=== PATIENT | male | born 1940 | race Caucasian/White ===

== ENCOUNTER → 2016-06-10 | Outpatient (CLI) | payer OTHER ==
[~2016-06-10] MED LIST: AMLO-114 PO; ENOX40IN SQ; ESCI1TAB10 PO; FENO134C PO; FENO1TAB PO; FEXO1TAB49 PO; FLUT50SP45 NAE; GLC/500 PO; GLUC1TES; HYDR25TA4 PO; LISI-725 PO; LISI10TA PO; LSN20 PO; OMEP20TA PO; SITA100T3 PO; TAMS0.4C59 PO; TRAM-10 PO
[2016-06-10 17:49] LABS: ALT/SGPT 33 U/L (12-78); BLOOD UREA NITROGEN 25 mg/dl (7-18); BUN/CREATININE RATIO 26.2 (10-20); CALCIUM 9.2 mg/dl (8.5-10.1); CARBON DIOXIDE 26 mmol/L (21-32); CHLORIDE 104 mmol/L (98-107); CREATININE 0.95 mg/dl (0.60-1.40); GLUCOSE 121 mg/dl (70-99); POTASSIUM 4.3 mmol/L (3.5-5.1); SODIUM 139 mmol/L (136-145)
[2016-06-10 17:52] LABS: ALB/GLOB RATIO 1.2 (0.9-2); ALKALINE PHOSPHATASE 61 U/L (45-117); AST/SGOT 20 U/L (15-37)
== END | disposition home or self-care (01) ==
LOC: C.LABPVFM 10:27
PROVIDERS: ATTEND Nurse Practitioner
DX: E55.9 Vitamin D deficiency, unspecified (principal); I10 Essential (primary) hypertension

== ENCOUNTER 2016-06-12 09:03 | Emergency (ER) | payer OTHER ==
[~2016-06-12] VITALS: Ht 177.8 cm; Wt 107.2 kg
[~2016-06-12 09:03] MED LIST changes: -AMLO-114 PO; -ESCI1TAB10 PO; -FENO1TAB PO; -FEXO1TAB49 PO; -FLUT50SP45 NAE; -GLUC1TES; -LISI-725 PO; -LSN20 PO; -OMEP20TA PO; -SITA100T3 PO
[2016-06-12 09:08] VITALS: TEMP 36.6; Ht 177.8 cm; Wt 107.2 kg
[2016-06-12] MEDS ORDERED: ACETAMINOPHEN 500 MG TAB PO STA (09:36)
[2016-06-12] MEDS ORDERED: SODIUM CHLORIDE 0.9% 1000ML 500 ML IV STA (09:36)
[2016-06-12] MEDS ORDERED: ONDANSETRON INJ 2 MG/ML 2 ML VIAL IV STA (09:36)
[2016-06-12] MEDS ORDERED: KETOROLAC TROMETHAMINE 30 MG/ML VIAL IV STA (09:36)
--- NOTE | 2016-06-12 09:39 | EMERGENCY ROOM VISIT NOTE ---
History Report prepared by Ailyn: Emil Bahena Under the Supervision of: Dr. Natacha Hogue M.D. First contact with patient: 09:26 Chief Complaint: HYPERTENSION Stated Complaint: HIGH BP History of Present Illness The patient is a 76 year old male who presents to the Emergency Room with complaints of persistent hypertension that began recently. The patient's blood pressure is 189/80. The patient has had headaches for the past three weeks as well. He has not been taking his medications for the past month due to the financial cost. He started his medications again recently. The patient states that he is "sick to his stomach" and is feeling unwell. He denies any numbness or weakness. Source of History: patient Onset: recently Position: other (global) Symptom Intensity: 189/80 Quality: other (hypertension) Timing: constant Associated Symptoms: + headache, No numbness, No weakness Review of Systems See HPI for pertinent positives & negatives. A total of 10 systems reviewed and were otherwise negative. Past Medical & Surgical Medical Problems: (1) Esophageal reflux (2) Hypertension (3) Nocturia Family History Family history is not pertinent due to age. Social History Smoking Status: Never Smoker Smokeless Tobacco Use: No Drug Use: none Occupation Status: retired Current/Historical Medications Scheduled Escitalopram Oxalate (Lexapro), 20 MG PO DAILY Fenofibrate (Tricor), 160 MG PO DAILY Hydrochlorothiazide (Hctz), 25 MG PO DAILY Lisinopril (Prinivil), 10 MG PO DAILY Metformin Hcl (Glucophage), 500 MG PO BID Omeprazole (Omeprazole), 1 TAB PO DAILY Sitagliptin Phosphate (Januvia), 100 MG PO DAILY Miscellaneous Medications Glucose Blood (Easy Touch Glucose Test S) Allergies Coded Allergies: Codeine (Verified Allergy, Unknown, 06/12/16) Morphine (Verified Adverse Reaction, Mild, HALLUCINATES, 06/12/16) Physical Exam Vital Signs Date Time Temp Pulse Resp B/P Pulse Ox O2 Delivery O2 Flow Rate FiO2 06/12/16 10:06 60 18 192/90 95 Room Air 06/12/16 09:24 57 06/12/16 09:08 36.6 61 18 189/80 96 Room Air Physical Exam CONSTITUTIONAL: Mild distress HEENT: No icterus, moist mucous membranes NECK: No meningismus, trachea is midline. CARDIOVASCULAR: Regular rate, normal perfusion RESPIRATORY: Unlabored breathing. Clear to auscultation. GASTROINTESTINAL: Non-tender GENITOURINARY: No flank tenderness MUSCULOSKELETAL: Full range of motion NEUROLOGIC: No acute gross focal deficits. PSYCHIATRIC: Normal affect SKIN: Normal for ethnicity. Medical Decision & Procedures ER Provider Diagnostic Interpretation: Radiology results are stated below per my review and radiologist interpretation. CT OF THE HEAD WITHOUT CONTRAST CLINICAL HISTORY: Headache. COMPARISON STUDY: No previous studies for comparison. CT DOSE: 537.48 mGy.cm TECHNIQUE: Helical axial images of the head were obtained without IV contrast. Automated exposure control was utilized for the study. FINDINGS: No acute intracranial hemorrhage, midline shift or mass effect is present. Ventricular system is unremarkable. The basilar cisterns are patent. There are no extra-axial collections. White matter hypodensities suggests small vessel disease. There are no findings to suggest acute dural sinus thrombosis or acute territorial infarct. There is no calvarial fracture. Visualized portions of the sinuses and the mastoid air cells are clear. IMPRESSION: No acute intracranial findings. Electronically signed by: Homero Julio M.D. 06/12/2016 10:17 AM Dictated Date/Time: 06/12/2016 10:14 AM Laboratory Results 06/12/16 09:10 Red Blood Count 5.33, Mean Corpuscular Volume 84.4, Mean Corpuscular Hemoglobin 29.3, Mean Corpuscular Hemoglobin Concent 34.7, Mean Platelet Volume 10.9, Neutrophils (%) (Auto) 61.6, Lymphocytes (%) (Auto) 28.7, Monocytes (%) (Auto) 8.0, Eosinophils (%) (Auto) 1.2, Basophils (%) (Auto) 0.4, Neutrophils # (Auto) 4.60, Lymphocytes # (Auto) 2.15, Monocytes # (Auto) 0.60, Eosinophils # (Auto) 0.09, Basophils # (Auto) 0.03 06/12/16 09:10 Test 06/12/16 09:10 06/12/16 09:36 White Blood Count 7.48 K/uL (4.8-10.8) Red Blood Count 5.33 M/uL (4.7-6.1) Hemoglobin 15.6 g/dL (14.0-18.0) Hematocrit 45.0 % (42-52) Mean Corpuscular Volume 84.4 fL (80-100) Mean Corpuscular Hemoglobin 29.3 pg (25-34) Mean Corpuscular Hemoglobin Concent 34.7 g/dl (32-36) Platelet Count 305 K/uL (130-400) Mean Platelet Volume 10.9 fL (7.4-10.4) Neutrophils (%) (Auto) 61.6 % Lymphocytes (%) (Auto) 28.7 % Monocytes (%) (Auto) 8.0 % Eosinophils (%) (Auto) 1.2 % Basophils (%) (Auto) 0.4 % Neutrophils # (Auto) 4.60 K/uL (1.4-6.5) Lymphocytes # (Auto) 2.15 K/uL (1.2-3.4) Monocytes # (Auto) 0.60 K/uL (0.11-0.59) Eosinophils # (Auto) 0.09 K/uL (0-0.5) Basophils # (Auto) 0.03 K/uL (0-0.2) RDW Standard Deviation 39.1 fL (36.4-46.3) RDW Coefficient of Variation 12.9 % (11.5-14.5) Immature Granulocyte % (Auto) 0.1 % Immature Granulocyte # (Auto) 0.01 K/uL (0.00-0.02) Anion Gap 7.0 mmol/L (3-11) Est Creatinine Clear Calc Drug Dose 72.2 ml/min Estimated GFR () 76.2 Estimated GFR (Non- 65.8 BUN/Creatinine Ratio 28.4 (10-20) Calcium Level 8.9 mg/dl (8.5-10.1) Total Bilirubin 0.7 mg/dl (0.2-1) Aspartate Amino Transf (AST/SGOT) 14 U/L (15-37) Alanine Aminotransferase (ALT/SGPT) 32 U/L (12-78) Alkaline Phosphatase 64 U/L (45-117) Troponin I < 0.015 ng/ml (0-0.045) Total Protein 7.6 gm/dl (6.4-8.2) Albumin 4.1 gm/dl (3.4-5.0) Globulin 3.5 gm/dl (2.5-4.0) Albumin/Globulin Ratio 1.2 (0.9-2) Labs reviewed by ED physician. Medications Administered Medications (Trade) Dose Ordered Sig/Garrick Route Start Time Stop Time Status Last Admin Dose Admin Acetaminophen (Tylenol Tab) 1,000 mg NOW STAT PO 06/12/16 09:36 06/12/16 09:39 DC 06/12/16 09:46 1,000 MG Ondansetron HCl 4 mg 4 mg NOW STAT IV 06/12/16 09:36 06/12/16 09:39 DC 06/12/16 09:45 4 MG Sodium Chloride (Nss 1000ml) 500 ml @ 0 mls/hr Q0M STAT IV 06/12/16 09:36 06/12/16 09:39 DC 06/12/16 09:36 999 MLS/HR Ketorolac Tromethamine (Toradol Inj) 15 mg NOW STAT IV 06/12/16 09:36 06/12/16 09:39 DC 06/12/16 09:45 15 MG ECG Indication: other (hypertension) Rate (beats per minute): 62 Rhythm: sinus rhythm Findings: nonspecific-ST abn, no ectopy, other (normal axis) ED Course 0926: Past medical records reviewed. The patient was evaluated in room A11. A complete history and physical examination was performed. 0936: Toradol Inj 15 mg IV, Sodium Chloride 500 ml @ 0 mls/hr Wide Open IV, Zofran Inj 4 mg IV, Tylenol Tab 1000 mg PO 0945: Morphine Sulfate 4 mg IV 1055: Upon reexamination the patient is resting. I discussed results and treatment plan with the patient. He verbalizes agreement and understanding. The patient is ready for discharge. Medical Decision Differential diagnoses include but are not limited to; hypertension, bleed, tumor, electrolyte abnormality, and headache disorder. 76-year-old presented to the emergency room for evaluation of several weeks of mild diffuse headache without focal neurologic complaints in the context of noncompliance with his antihypertensives. He dirty she has doctor and started back on his blood pressure medication has follow-up in [address] head in the emergency room and labs were unremarkable. He understands to discuss the cost effective options to manage his high blood pressure on Tuesday. He had no further questions or concerns was no distress at the time of discharge at 11 AM. Impression Primary Impression: Hypertension Additional Impression: Headache Scribe Attestation The scribe's documentation has been prepared under my direction and personally reviewed by me in its entirety. I confirm that the note above accurately reflects all work, treatment, procedures, and medical decision making performed by me. Departure Information Dispostion Home / Self-Care Referrals Saida Sauer C.R.N.P (PCP) Forms HOME CARE DOCUMENTATION FORM, IMPORTANT VISIT INFORMATION, WORK / SCHOOL INSTRUCTIONS Patient Instructions A Signature Page, ED Hypertension Conf Out Of Control, Headache Pain, My [facility]
[2016-06-12] MEDS ORDERED: MoRPHine SULFATE 4 MG/ML 1 ML CARP\\VIAL IV PRN (09:45)
[2016-06-12 10:04] LABS: BASO % 0.4 %; BASO ABS # 0.03 K/uL (0-0.2); COMPLETE YES; EOS % 1.2 %; IG% 0.1 %; LYMPH % 28.7 %; LYMPH ABS # 2.15 K/uL (1.2-3.4); MEAN CELL VOLUME 84.4 fL (80-100); MEAN CORPUSCULAR HEMOGLOBIN 29.3 pg (25-34); MEAN CORPUSCULAR HGB CONC 34.7 g/dl (32-36); MEAN PLATELET VOLUME 10.9 fL (7.4-10.4); NEUT % 61.6 %; PLATELET COUNT 305 K/uL (130-400); RED BLOOD COUNT 5.33 M/uL (4.7-6.1); WHITE BLOOD COUNT 7.48 K/uL (4.8-10.8)
[2016-06-12 10:12] LABS: BLOOD UREA NITROGEN 31 mg/dl (7-18); BUN/CREATININE RATIO 28.4 (10-20); CALCIUM 8.9 mg/dl (8.5-10.1); CARBON DIOXIDE 28 mmol/L (21-32); CHLORIDE 103 mmol/L (98-107); GLUCOSE 147 mg/dl (70-99); POTASSIUM 3.9 mmol/L (3.5-5.1); SODIUM 138 mmol/L (136-145)
--- NOTE | 2016-06-12 10:19 | DIAGNOSTIC IMAGING REPORT ---
CT OF THE HEAD WITHOUT CONTRAST CLINICAL HISTORY: Headache. COMPARISON STUDY: No previous studies for comparison. CT DOSE: 537.48 mGy.cm TECHNIQUE: Helical axial images of the head were obtained without IV contrast. Automated exposure control was utilized for the study. FINDINGS: No acute intracranial hemorrhage, midline shift or mass effect is present. Ventricular system is unremarkable. The basilar cisterns are patent. There are no extra-axial collections. White matter hypodensities suggests small vessel disease. There are no findings to suggest acute dural sinus thrombosis or acute territorial infarct. There is no calvarial fracture. Visualized portions of the sinuses and the mastoid air cells are clear. IMPRESSION: No acute intracranial findings. Electronically signed by: Homero Julio M.D. 06/12/2016 10:17 AM Dictated Date/Time: 06/12/2016 10:14 AM
[2016-06-12 10:27] LABS: ALB/GLOB RATIO 1.2 (0.9-2); ALKALINE PHOSPHATASE 64 U/L (45-117); ALT/SGPT 32 U/L (12-78); AST/SGOT 14 U/L (15-37)
[2016-06-12] MEDS ORDERED: ESCI1TAB10 PO (10:27)
[2016-06-12] MEDS ORDERED: SITA100T3 PO (10:27)
[2016-06-12] MEDS ORDERED: OMEP20TA PO (10:27)
[2016-06-12] MEDS ORDERED: GLUC1TES (10:27)
[2016-06-12] MEDS ORDERED: FENO1TAB PO (10:27)
[2016-06-12 11:09] LABS: URINE APPEARANCE CLEAR (CLEAR); URINE BILIRUBIN NEG (NEG); URINE COLOR DK YELLOW; URINE NITRITE NEG (NEG); URINE SPECIFIC GRAVITY 1.026 (1.000-1.030); UROBILINOGEN NEG (NEG); ZZUR CULT IF INDIC CLEAN CATCH NO
[2016-06-12 11:16] LABS: MANUAL MICROSCOPIC REQUIRED? NO; REVIEW REQ? NO
[2016-06-12 12:38] VITALS: BP 197/85; PULSE 59; O2SAT 96
[2016-06-16] MEDS ORDERED: LSN20 PO (08:50)
== END 2016-06-12 12:40 | disposition home or self-care (01) ==
LOC: C.EDB 09:04 → C.EDA 12:40
DX: R51 Headache (principal); I10 Essential (primary) hypertension; K21.9 Gastro-esophageal reflux disease without esophagitis

== ENCOUNTER 2016-06-15 15:03 | Observation (INO) | payer OTHER ==
[~2016-06-15] VITALS: Ht 177.8 cm; Wt 104.8 kg
[~2016-06-15 15:03] MED LIST changes: -ENOX40IN SQ; +ESCI1TAB10 PO; -FENO134C PO; +FENO1TAB PO; +GLUC1TES; +OMEP20TA PO; +SITA100T3 PO; -TAMS0.4C59 PO; -TRAM-10 PO
[2016-06-15] MEDS ORDERED: TRAM-10 PO (15:12)
[2016-06-15] MEDS ORDERED: HydrALAZINE HCL 20 MG/ML VIAL IV STA (15:19)
[2016-06-15] MEDS ORDERED: ACETAMINOPHEN 500 MG TAB PO STA (15:25)
[2016-06-15] MEDS ORDERED: OPTIRAY 320 IV PRN (15:30)
[2016-06-15 15:33] LABS: BASO % 0.4 %; BASO ABS # 0.03 K/uL (0-0.2); COMPLETE YES; IG% 0.1 %; LYMPH ABS # 1.61 K/uL (1.2-3.4); MEAN CELL VOLUME 84.1 fL (80-100); MEAN CORPUSCULAR HEMOGLOBIN 28.7 pg (25-34); MEAN CORPUSCULAR HGB CONC 34.1 g/dl (32-36); MEAN PLATELET VOLUME 10.9 fL (7.4-10.4); MONO % 4.8 %; NEUT % 73.7 %; PLATELET COUNT 272 K/uL (130-400); RED BLOOD COUNT 5.23 M/uL (4.7-6.1); WHITE BLOOD COUNT 8.07 K/uL (4.8-10.8)
--- NOTE | 2016-06-15 15:33 | EMERGENCY ROOM VISIT NOTE ---
History Report prepared by Ailyn: Oniel Zarate Under the Supervision of: Dr. Mykel Costa M.D. First contact with patient: 15:15 Chief Complaint: HEADACHE Stated Complaint: HEADACHE, NAUSEA, DIZZINESS ELEVATED B/P History of Present Illness The patient is a 76 year old male who presents to the Emergency Room with complaints of persistent headaches beginning about 1 month ago. He states that he ran out of Lisinopril about one month ago, and has restarted the medication along with hydrochlorothiazide about 10 days ago, but does not think it is controlling his blood pressure well. He notes the headache began around the time he ran out of blood pressure medication. He describes the headache as going all the way around his head, and rates it a 10/10 in severity. He admits to having nausea, but denies any chest pain, shortness or breath, or numbness or weakness in his arms or legs. The patient states he was here 3 days ago with similar symptoms. He has been taking Advil for his headache symptoms. Source of History: patient Onset: about 1 month ago Position: head Symptom Intensity: 10/10 in severity Quality: other (headache goes all the way around head) Timing: other (persistent) Associated Symptoms: + nausea, No SOB, No chest pain, No numbness (in arms or legs), No weakness (in arms or legs) Review of Systems See HPI for pertinent positives & negatives. A total of 10 systems reviewed and were otherwise negative. Past Medical & Surgical Medical Problems: (1) Esophageal reflux (2) Hypertension (3) Nocturia Family History No pertinent family history stated. Social History Smoking Status: Former Smoker Drug Use: none Occupation Status: retired Current/Historical Medications Scheduled Escitalopram Oxalate (Lexapro), 20 MG PO DAILY Fenofibrate (Tricor), 160 MG PO DAILY Hydrochlorothiazide (Hctz), 25 MG PO DAILY Lisinopril (Prinivil), 10 MG PO DAILY Metformin Hcl (Glucophage), 1,000 MG PO BID Omeprazole (Omeprazole), 20 MG PO QAM Sitagliptin Phosphate (Januvia), 100 MG PO DAILY Scheduled PRN Tramadol (Ultram), 50 MG PO Q6H PRN for Pain Allergies Coded Allergies: Codeine (Verified Allergy, Unknown, 06/15/16) Morphine (Verified Adverse Reaction, Mild, HALLUCINATES, 06/15/16) Physical Exam Vital Signs Date Time Temp Pulse Resp B/P Pulse Ox O2 Delivery O2 Flow Rate FiO2 06/15/16 17:04 76 152/88 95 06/15/16 16:42 77 183/93 98 06/15/16 16:35 79 16 201/93 97 06/15/16 16:00 68 181/96 06/15/16 15:43 69 174/97 06/15/16 15:41 65 06/15/16 15:38 67 16 198/101 96 Room Air 06/15/16 15:31 64 16 180/100 96 06/15/16 15:16 36.6 69 20 201/97 97 Room Air Physical Exam GENERAL: Patient is in no acute distress. HEENT: No acute trauma, normocephalic atraumatic, mucous membranes moist, no nasal congestion, no scleral icterus. NECK: No stridor, no adenopathy, no meningismus, trachea is midline. LUNGS: Clear to auscultation bilaterally, no wheeze, no rhonchi, breath sounds equal. HEART: Without murmurs gallops or rubs, regular rate and rhythm. ABDOMEN: Soft, nontender, bowel sounds positive, no hernias, no peritonitis. EXTREMITIES: No cyanosis or edema, full range of motion of all the joints without pain or difficulty, no signs for acute trauma. NEUROLOGIC: Oriented x 3, no acute motor or sensory deficits, no focal weakness. No cerebellar dysfunction or pronator drift. SKIN: No rash, no jaundice, no diaphoresis. Medical Decision & Procedures ER Provider Diagnostic Interpretation: CT results as stated below per my review and radiologist interpretation: CT OF THE HEAD WITHOUT CONTRAST AND CT ANGIOGRAPHY OF THE HEAD WITH CONTRAST FINDINGS: No acute intracranial hemorrhage, midline shift or mass effect is present. Brain volume is normal for age. Ventricular system is normal. The basilar cisterns are patent. There are no extra-axial collections. Mcclendon-white differentiation is maintained. Moderate white matter hypodensity suggests small vessel disease. No calvarial abnormalities are present. Visualized portions of the sinuses and mastoid air cells are clear. The bilateral M1, M2, A1 and A2 segment are patent. There is no abrupt vessel cut off. There is moderate atherosclerotic plaque of the intracranial vessels. No aneurysm is identified. There is moderate stenosis of the intracranial portion of the right vertebral artery. There is mild stenosis of the intracranial portion of the left vertebral artery. There is mild stenosis of the bilateral cavernous carotids. IMPRESSION: 1. No acute intracranial findings. 2. No abrupt vessel cut off or intracranial aneurysm identified. 3. 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 Electronically signed by: Homero Julio M.D. 06/15/2016 4:44 PM Dictated Date/Time: 06/15/2016 4:37 PM Laboratory Results 06/15/16 15:20 Red Blood Count 5.23, Mean Corpuscular Volume 84.1, Mean Corpuscular Hemoglobin 28.7, Mean Corpuscular Hemoglobin Concent 34.1, Mean Platelet Volume 10.9, Neutrophils (%) (Auto) 73.7, Lymphocytes (%) (Auto) 20.0, Monocytes (%) (Auto) 4.8, Eosinophils (%) (Auto) 1.0, Basophils (%) (Auto) 0.4, Neutrophils # (Auto) 5.95, Lymphocytes # (Auto) 1.61, Monocytes # (Auto) 0.39, Eosinophils # (Auto) 0.08, Basophils # (Auto) 0.03 06/15/16 15:20 Test 06/15/16 15:20 White Blood Count 8.07 K/uL (4.8-10.8) Red Blood Count 5.23 M/uL (4.7-6.1) Hemoglobin 15.0 g/dL (14.0-18.0) Hematocrit 44.0 % (42-52) Mean Corpuscular Volume 84.1 fL (80-100) Mean Corpuscular Hemoglobin 28.7 pg (25-34) Mean Corpuscular Hemoglobin Concent 34.1 g/dl (32-36) Platelet Count 272 K/uL (130-400) Mean Platelet Volume 10.9 fL (7.4-10.4) Neutrophils (%) (Auto) 73.7 % Lymphocytes (%) (Auto) 20.0 % Monocytes (%) (Auto) 4.8 % Eosinophils (%) (Auto) 1.0 % Basophils (%) (Auto) 0.4 % Neutrophils # (Auto) 5.95 K/uL (1.4-6.5) Lymphocytes # (Auto) 1.61 K/uL (1.2-3.4) Monocytes # (Auto) 0.39 K/uL (0.11-0.59) Eosinophils # (Auto) 0.08 K/uL (0-0.5) Basophils # (Auto) 0.03 K/uL (0-0.2) RDW Standard Deviation 39.6 fL (36.4-46.3) RDW Coefficient of Variation 13.0 % (11.5-14.5) Immature Granulocyte % (Auto) 0.1 % Immature Granulocyte # (Auto) 0.01 K/uL (0.00-0.02) Erythrocyte Sedimentation Rate 5 mm/hr (0-14) Anion Gap 10.0 mmol/L (3-11) Est Creatinine Clear Calc Drug Dose 90.2 ml/min Estimated GFR () 98.1 Estimated GFR (Non- 84.6 BUN/Creatinine Ratio 24.6 (10-20) Calcium Level 8.9 mg/dl (8.5-10.1) Magnesium Level 1.9 mg/dl (1.8-2.4) Total Bilirubin 0.6 mg/dl (0.2-1) Aspartate Amino Transf (AST/SGOT) 14 U/L (15-37) Alanine Aminotransferase (ALT/SGPT) 28 U/L (12-78) Alkaline Phosphatase 62 U/L (45-117) Troponin I < 0.015 ng/ml (0-0.045) Total Protein 7.5 gm/dl (6.4-8.2) Albumin 4.2 gm/dl (3.4-5.0) Globulin 3.3 gm/dl (2.5-4.0) Albumin/Globulin Ratio 1.3 (0.9-2) Thyroid Stimulating Hormone (TSH) 0.394 uIu/ml (0.300-4.500) Laboratory results reviewed by me. Medications Administered Medications (Trade) Dose Ordered Sig/Garrick Route Start Time Stop Time Status Last Admin Dose Admin Hydralazine HCl (HydrALAZINE INJ) 10 mg NOW STAT IV 06/15/16 15:19 06/15/16 15:24 DC 06/15/16 15:35 10 MG Acetaminophen (Tylenol Tab) 1,000 mg NOW STAT PO 06/15/16 15:25 06/15/16 15:26 DC 06/15/16 15:34 1,000 MG Ondansetron HCl (Zofran Inj) 4 mg NOW STAT IV 06/15/16 16:37 06/15/16 16:38 DC 06/15/16 16:41 4 MG ED Course 1516: The patient was evaluated in room C4. A complete history and physical exam was performed. 1519: Ordered Hydralazine HCl 10 mg IV. 1525: Ordered Acetaminophen 1,000 mg PO. 1637: Ordered Zofran Inj 4 mg IV. 1654: I reassessed the patient. He still has a headache. 1704: Discussed the patient's case with Dr. Sanon. The patient will be evaluated for further management. 1705: Upon reexamination the patient is hemodynamically stable. I discussed results and treatment plan with the patient. He verbalizes agreement and understanding. The patient will be evaluated for further management. Medical Decision Differentials include uncontrolled hypertension, intracranial bleed, aneurism, medication reaction, infection, and failed outpatient treatment. There is no leukocytosis or concerning anemia. No significant electrolyte abnormality or kidney failure. Sedimentation rate is not elevated making temporal arteritis unlikely. Brain CT done with contrast does not show bleeding or evidence for aneurysm. On exam, the patient had no focal neurologic deficits. The patient received IV Zofran, oral Tylenol, IV hydralazine. His blood pressure is now better controlled. The patient though still has a headache. The patient presents with a persistent headache and persistent high blood pressure at home despite multiple visits to his family doctor's office and a recent visit to our ER. He needs better blood pressure control, he required IV medication to control his blood pressure this evening. I do think admission/ observation is warranted. I spoke to the patient and case management. The on- call hospitalist was consulted. Consults Time Called: 170 Consulting Physician: Dr. Sanon - [facility] [place] Returned Call: 170 Discussed the patient's case with Dr. Sanon. The patient will be evaluated for further management. Impression Primary Impression: Uncontrolled hypertension Additional Impressions: Headache Failure of outpatient treatment Scribe Attestation The scribe's documentation has been prepared under my direction and personally reviewed by me in its entirety. I confirm that the note above accurately reflects all work, treatment, procedures, and medical decision making performed by me. Departure Information Dispostion Being Evaluated By Hospitalist Referrals Saida Sauer C.R.N.P (PCP) Patient Instructions A Signature Page, My [facility] Problem Qualifiers
[2016-06-15 15:45] LABS: ALT/SGPT 28 U/L (12-78); AST/SGOT 14 U/L (15-37); BLOOD UREA NITROGEN 22 mg/dl (7-18); BUN/CREATININE RATIO 24.6 (10-20); CALCIUM 8.9 mg/dl (8.5-10.1); CARBON DIOXIDE 25 mmol/L (21-32); CHLORIDE 102 mmol/L (98-107); CREATININE 0.88 mg/dl (0.60-1.40); GLUCOSE 182 mg/dl (70-99); MAGNESIUM 1.9 mg/dl (1.8-2.4); POTASSIUM 3.8 mmol/L (3.5-5.1); SODIUM 137 mmol/L (136-145)
[2016-06-15 15:56] LABS: ALB/GLOB RATIO 1.3 (0.9-2); ALKALINE PHOSPHATASE 62 U/L (45-117); THYROID STIMULATING HORMONE 0.394 uIu/ml (0.300-4.500)
[2016-06-15] MEDS ORDERED: ONDANSETRON INJ 2 MG/ML 2 ML VIAL IV STA (16:37)
--- NOTE | 2016-06-15 16:45 | DIAGNOSTIC IMAGING REPORT ---
CT OF THE HEAD WITHOUT CONTRAST AND CT ANGIOGRAPHY OF THE HEAD WITH CONTRAST CT DOSE: 732.03 mGy.cm CLINICAL HISTORY: Headache, nausea, vomiting and hypertension. TECHNIQUE: Initially, unenhanced axial images of the head were obtained. Arterial phase images of the head were then obtained following intravenous injection of 119 cc Optiray 320 IV. Sagittal and coronal reconstructed reviewed as well as maximal intensity projections on an independent 3-D workstation. COMPARISON STUDY: Head CT June 12, 2016. FINDINGS: No acute intracranial hemorrhage, midline shift or mass effect is present. Brain volume is normal for age. Ventricular system is normal. The basilar cisterns are patent. There are no extra-axial collections. Mcclendon-white differentiation is maintained. Moderate white matter hypodensity suggests small vessel disease. No calvarial abnormalities are present. Visualized portions of the sinuses and mastoid air cells are clear. The bilateral M1, M2, A1 and A2 segment are patent. There is no abrupt vessel cut off. There is moderate atherosclerotic plaque of the intracranial vessels. No aneurysm is identified. There is moderate stenosis of the intracranial portion of the right vertebral artery. There is mild stenosis of the intracranial portion of the left vertebral artery. There is mild stenosis of the bilateral cavernous carotids. IMPRESSION: 1. No acute intracranial findings. 2. No abrupt vessel cut off or intracranial aneurysm identified. 3. 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 Electronically signed by: Homero Julio M.D. 06/15/2016 4:44 PM Dictated Date/Time: 06/15/2016 4:37 PM
[2016-06-15] MEDS ORDERED: LABETALOL HCL IV 5 MG/ML 20ML IV STA (16:59)
[2016-06-15] MEDS ORDERED: ACETAMINOPHEN 325 MG TAB PO PRN (17:45)
[2016-06-15] MEDS ORDERED: DEXTROSE 50% 50 ML SYR IV PRN ×2 (17:45→20:15)
[2016-06-15] MEDS ORDERED: GLUCOSE 10 TABS/TUBE PO PRN ×2 (17:45→20:15)
[2016-06-15] MEDS ORDERED: ONDANSETRON INJ 2 MG/ML 2 ML VIAL IV PRN (17:45)
[2016-06-15] MEDS ORDERED: GLUCOSE 40% GEL 15 GM TUBE PO PRN ×2 (17:45→20:15)
[2016-06-15] MEDS ORDERED: GLUCAGON FOR INJ 1 MG VIAL SQ PRN ×2 (17:45→20:15)
[2016-06-15] MEDS ORDERED: CLONIDINE HCL 0.1 MG TAB PO ONE (18:15)
[2016-06-15] MEDS ORDERED: TRAMADOL HCL 50 MG TAB PO PRN (18:15)
[2016-06-15] MEDS ORDERED: HydrALAZINE HCL 20 MG/ML VIAL IV. PRN (18:15)
[2016-06-15 20:00] VITALS: O2SAT 95
[2016-06-15 20:01] VITALS: BP 186/96; PULSE 76; TEMP 36.9; O2SAT 95; Ht 177.8 cm; Wt 104.8 kg
--- NOTE | 2016-06-15 20:21 | History and Physical ---
History & Physical Date & Time of Service: Jun 15, 2016 at 20:09 Chief Complaint: Uncontrolled Hypertension Primary Care Physician: Saida Sauer C.R.N.P History of Present Illness Source: patient Pt is a 76 yo male who presents to the ER with complaints of persistent headaches beginning about 1 month ago. Pt reports he ran out of his antihypertensive meds at that time for about 1.5 months due to insurance issues. He states he went to see his PCP and was started on a new medications. Pt reports his BP as been 200s/100s for past few weeks. He notes headaches but denies chest pain, shortness of breath, numbness, tingliness, weakness. He has been taking advil for his headaches, Past Medical/Surgical History Medical Problems: (1) Esophageal reflux Status: Chronic (2) Hypertension Status: Chronic (3) Nocturia Status: Chronic Social History Smoking Status: Former Smoker Drug Use: none Occupational Status: retired Immunizations History of Influenza Vaccine: No History of Tetanus Vaccine?: No History of Pneumococcal: Yes History of Hepatitis B Vaccine: No Multi-Drug Resistant Organisms History of MDRO: No Allergies Coded Allergies: Codeine (Verified Allergy, Unknown, 06/15/16) Morphine (Verified Adverse Reaction, Mild, HALLUCINATES, 06/15/16) Home Medications Scheduled Escitalopram Oxalate (Lexapro), 20 MG PO DAILY Fenofibrate (Tricor), 160 MG PO DAILY Hydrochlorothiazide (Hctz), 25 MG PO DAILY Lisinopril (Prinivil), 10 MG PO DAILY Metformin Hcl (Glucophage), 1,000 MG PO BID Omeprazole (Omeprazole), 20 MG PO QAM Sitagliptin Phosphate (Januvia), 100 MG PO DAILY Scheduled PRN Tramadol (Ultram), 50 MG PO Q6H PRN for Pain Review of Systems Constitutional: No chills, No fever Respiratory: No cough, No shortness of breath, No sputum, No wheezing Cardiovascular: No chest pain, No orthopnea Abdomen: No diarrhea, No nausea, No pain, No vomiting Musculoskeletal: No joint pain, No muscle pain Genitourinary - Male: No dysuria, No hematuria Neurologic: No paralysis, No weakness Physical Exam Vital Signs Date Time Temp Pulse Resp B/P Pulse Ox O2 Delivery O2 Flow Rate FiO2 06/15/16 18:34 74 169/90 96 06/15/16 18:15 73 20 160/86 95 06/15/16 17:04 76 152/88 95 06/15/16 16:42 77 183/93 98 06/15/16 16:35 79 16 201/93 97 06/15/16 16:00 68 181/96 06/15/16 15:43 69 174/97 06/15/16 15:41 65 06/15/16 15:38 67 16 198/101 96 Room Air 06/15/16 15:31 64 16 180/100 96 06/15/16 15:16 36.6 69 20 201/97 97 Room Air General Appearance: WD/WN, + mild distress Neck: supple, no adenopathy Respiratory/Chest: chest non-tender, lungs clear, no respiratory distress Cardiovascular: regular rate, rhythm, no gallop Abdomen/GI: non tender, soft Neurologic/Psych: alert, oriented x 3 Diagnostics Laboratory Results Results Past 24 Hours Test 06/15/16 15:20 Range/Units White Blood Count 8.07 4.8-10.8 K/uL Red Blood Count 5.23 4.7-6.1 M/uL Hemoglobin 15.0 14.0-18.0 g/dL Hematocrit 44.0 42-52 % Mean Corpuscular Volume 84.1 80-100 fL Mean Corpuscular Hemoglobin 28.7 25-34 pg Mean Corpuscular Hemoglobin Concent 34.1 32-36 g/dl Platelet Count 272 130-400 K/uL Mean Platelet Volume 10.9 7.4-10.4 fL Neutrophils (%) (Auto) 73.7 % Lymphocytes (%) (Auto) 20.0 % Monocytes (%) (Auto) 4.8 % Eosinophils (%) (Auto) 1.0 % Basophils (%) (Auto) 0.4 % Neutrophils # (Auto) 5.95 1.4-6.5 K/uL Lymphocytes # (Auto) 1.61 1.2-3.4 K/uL Monocytes # (Auto) 0.39 0.11-0.59 K/uL Eosinophils # (Auto) 0.08 0-0.5 K/uL Basophils # (Auto) 0.03 0-0.2 K/uL RDW Standard Deviation 39.6 36.4-46.3 fL RDW Coefficient of Variation 13.0 11.5-14.5 % Immature Granulocyte % (Auto) 0.1 % Immature Granulocyte # (Auto) 0.01 0.00-0.02 K/uL Erythrocyte Sedimentation Rate 5 0-14 mm/hr Sodium Level 137 136-145 mmol/L Potassium Level 3.8 3.5-5.1 mmol/L Chloride Level 102 98-107 mmol/L Carbon Dioxide Level 25 21-32 mmol/L Anion Gap 10.0 3-11 mmol/L Blood Urea Nitrogen 22 7-18 mg/dl Creatinine 0.88 0.60-1.40 mg/dl Est Creatinine Clear Calc Drug Dose 90.2 ml/min Estimated GFR () 98.1 Estimated GFR (Non- 84.6 BUN/Creatinine Ratio 24.6 10-20 Random Glucose 182 70-99 mg/dl Calcium Level 8.9 8.5-10.1 mg/dl Magnesium Level 1.9 1.8-2.4 mg/dl Total Bilirubin 0.6 0.2-1 mg/dl Aspartate Amino Transf (AST/SGOT) 14 15-37 U/L Alanine Aminotransferase (ALT/SGPT) 28 12-78 U/L Alkaline Phosphatase 62 45-117 U/L Troponin I < 0.015 0-0.045 ng/ml Total Protein 7.5 6.4-8.2 gm/dl Albumin 4.2 3.4-5.0 gm/dl Globulin 3.3 2.5-4.0 gm/dl Albumin/Globulin Ratio 1.3 0.9-2 Thyroid Stimulating Hormone (TSH) 0.394 0.300-4.500 uIu/ml Impression Assessment and Plan Pt is a a 76 yo male with headaches for past month who presents with elev BP and noted to be in hypertensive urgency Hypertensive urgency - Will cont pt on home meds of lisinopril and HCTZ. In addition have added clonidine 0.1 mg daily with hydralazine PRN. If worsening may need to consider cardizem. Due to headaches head CTA completed which was neg for acute intracranial abnormalities. Dyslipidemia - Cont statin at this time DM II - Cont on ISS and accuchecks GERD - Cont protonix Depression/Anixety - Cont lexapro DVT ppx with SCDs VTE Prophylaxis VTE Risk Assessment Done? Y/N: Yes Risk Level: Moderate
[2016-06-15 20:30] VITALS: BP 136/75
[2016-06-15] MEDS: INSULIN ASPART 100 UNITS/ML 3 ML PEN SC SCH (20:41)
[2016-06-15] MEDS ORDERED: PNEUMOCOCCAL POLYSACCHARIDES 25 MCG/0.5 ML VIAL/SYR IM. ONE (20:45)
[2016-06-15] MEDS ORDERED: PNEUMOCOCCAL ADMINISTRATION CHARGE ONE (20:45)
[2016-06-15] MEDS ORDERED: IV FLUIDS COMPLETED PRN (21:00)
[2016-06-15] MEDS ORDERED: NURSING VERBAL MED ORDER ONE (22:15)
[2016-06-15] MEDS ORDERED: KETOROLAC TROMETHAMINE 15 MG/ML VIAL IV. PRN (22:15)
[2016-06-15 23:59] VITALS: O2SAT 95
[2016-06-16] VITALS: BP 125/60; PULSE 61; TEMP 37.2; O2SAT 93
[2016-06-16] MEDS ORDERED: TRAMADOL HCL 50 MG TAB PO PRN (00:15)
[2016-06-16 04:00] VITALS: O2SAT 93
[2016-06-16 04:06] VITALS: BP 128/61; PULSE 58; TEMP 37.1; O2SAT 93
[2016-06-16 04:54] LABS: BUN/CREATININE RATIO 24.4 (10-20); CALCIUM 8.6 mg/dl (8.5-10.1); CREATININE 0.99 mg/dl (0.60-1.40); POTASSIUM 3.8 mmol/L (3.5-5.1)
[2016-06-16 07:30] LABS: ESTIMATED AVERAGE GLUCOSE 143 mg/dl; HA1C FLAG Normal (Normal)
[2016-06-16 07:44] VITALS: BP 138/71; PULSE 53; TEMP 37.9; O2SAT 94
[2016-06-16] MEDS: INSULIN ASPART 100 UNITS/ML 3 ML PEN SC SCH (08:12)
[2016-06-16] MEDS ORDERED: LSN20 PO (08:50)
--- NOTE | 2016-06-16 08:52 | Discharge Instructions ---
Discharge Instructions Admission Reason for Admission: Uncontrolled Hypertension Discharge Discharge Diagnosis / Problem: htn urgency Discharge Goals Goal(s): Increase independence, Improve disease control, Diagnostic testing, Therapeutic intervention Activity Recommendations Activity Limitations: resume your previous activity Exercise/Sports Limitations: as tolerated . Instructions / Follow-Up Instructions / Follow-Up start lisinopril 20 mg daily in addition to HCTZ take tylenol as needed for headache Current Hospital Diet Patient's current hospital diet: Low Sodium Diet (2gm Na) Discharge Diet Recommended Diet: Diabetes Type 2 Diet Pending Studies Studies pending at discharge: no Laboratory Results Hemoglobin A1c Test 06/16/16 03:50 Range/Units Estimated Average Glucose 143 mg/dl Hemoglobin A1c 6.6 H 4.5-5.6 % Medical Emergencies . Who to Call and When: Medical Emergencies: If at any time you feel your situation is an emergency, please call 911 immediately. . Non-Emergent Contact Non-Emergency issues call your: Primary Care Provider Call Non-Emergent contact if: you have a fever, your pain is not controlled . Past History Medical & Surgical History: (1) Headache (2) Uncontrolled hypertension . "Provider Documentation" section prepared by Jona Brown. VTE Core Measure Inpt VTE Proph given/why not?: SCD's
--- NOTE | 2016-06-16 08:54 | Discharge Summary ---
Discharge Summary Admission Date: Jun 15, 2016 at 17:43 Discharge Date: Jun 16, 2016 Discharge Disposition: Home Principal Diagnosis: HTN urgency Immunizations: Have You Had Influenza Vaccine: No History of Tetanus Vaccine?: No History of Pneumococcal: Yes History of Hepatitis B Vaccine: No Medication Reconciliation Changed Medications: Lisinopril (Lisinopril) 20 Mg Tab 20 MG PO DAILY, #90 TABS 3 Refills (Changed from: Lisinopril (Prinivil) 10 Mg Tab 10 Mg PO DAILY) Continued Medications: Escitalopram Oxalate (Lexapro) 20 Mg Tab 20 MG PO DAILY, TAB Fenofibrate (Tricor) 160 Mg Tab 160 MG PO DAILY, TAB Hydrochlorothiazide (Hctz) 25 Mg Tab 25 MG PO DAILY, TAB Metformin Hcl (Glucophage) 500 Mg Tab 1000 MG PO BID, TAB Omeprazole (Omeprazole) 20 Mg Tab 20 MG PO QAM for 90 Days, #90 TAB 3 Refills Sitagliptin Phosphate (Januvia) 100 Mg Tab 100 MG PO DAILY, TAB Tramadol (Ultram) 50 Mg Tab 50 MG PO Q6H PRN for Pain, TAB Referrals At Discharge Follow up Referrals: Physician Referral - Within 2 Weeks with Saida Sauer C.R.N.P Discharge Exam Review of Systems: Constitutional: No chills ENT: No unusual epistaxis Respiratory: No sputum Cardiovascular: No orthopnea Musculoskeletal: No joint pain Genitourinary - Male: No hematuria Neurologic: No memory loss Endocrine: No excessive thirst Integumentary: No rash Physical Exam: General Appearance: WD/WN, no apparent distress Eyes: normal inspection, EOMI ENT: hearing grossly normal, pharynx normal Neck: supple, no JVD Respiratory/Chest: chest non-tender, normal breath sounds Cardiovascular: no edema, no JVD Abdomen / GI: soft, no pulsatile mass Extremities: no calf tenderness, normal capillary refill Neurologic/Psychiatric: normal reflexes Skin: no rash Hospital Course Pt is a a 76 yo male with headaches for past month who presents with elev BP and noted to be in hypertensive urgency Hypertensive urgency - improved, secondary to running out of medications restart lisinopril and HCTZ. CTA completed which was neg for acute intracranial abnormalities. Dyslipidemia - Cont statin at this time DM II - Cont on ISS and accuchecks GERD - Cont protonix Depression/Anixety - Cont lexapro f/u PCP 2 weeks Total Time Spent: Greater than 30 minutes This includes examination of the patient, discharge planning, medication reconciliation, and communication with other providers. Discharge Instructions Please refer to the electronic Patient Visit Report (Discharge Instructions) for additional information. Additional Copies To Saida Sauer C.R.N.P
[2016-06-16] MEDS ORDERED: LISINOPRIL 10 MG TAB PO SCH (09:00)
[2016-06-16] MEDS ORDERED: PANTOprazole SOD 40 MG TAB PO SCH (09:00)
[2016-06-16] MEDS ORDERED: SITAGLIPTIN 100 MG TAB PO SCH (09:00)
[2016-06-16] MEDS ORDERED: HYDROCHLOROTHIAZIDE 25 MG TAB PO SCH (09:00)
[2016-06-16] MEDS ORDERED: CLONIDINE HCL 0.1 MG TAB PO SCH (09:00)
[2016-06-16] MEDS ORDERED: ESCITALOPRAM OXALATE 20 MG TAB PO SCH (09:00)
[2016-06-16 09:59] VITALS: BP 138/71; PULSE 53; TEMP 37.9; O2SAT 94
[2016-06-17] MEDS ORDERED: METFORMIN HCL 500 MG TAB PO SCH (16:45)
== END 2016-06-16 11:45 | disposition home or self-care (01) ==
LOC: ENRESERVDT → ENRESERVTM → EDBD 15:03 → C.EDC 15:05 → C.2E 17:43
PROVIDERS: ADMIT Hospitalist; ATTEND Hospitalist
DX: I16.0 Hypertensive urgency (principal); I10 Essential (primary) hypertension; R51 Headache; K21.9 Gastro-esophageal reflux disease without esophagitis; E11.9 Type 2 diabetes mellitus without complications; E78.5 Hyperlipidemia, unspecified; F32.9 Major depressive disorder, single episode, unspecified; F41.9 Anxiety disorder, unspecified; Z79.899 Other long term (current) drug therapy; Z66 Do not resuscitate; Z87.891 Personal history of nicotine dependence

== ENCOUNTER → 2017-02-10 | Outpatient (CLI) | payer OTHER ==
[~2017-02-10] MED LIST changes: -GLUC1TES; -LISI10TA PO; +LSN20 PO; +TRAM-10 PO
[2017-02-10 13:17] LABS: ESTIMATED AVERAGE GLUCOSE 154 mg/dl; HA1C FLAG Normal (Normal)
[2017-02-10 13:19] LABS: ALB/GLOB RATIO 1.1 (0.9-2); ALT/SGPT 33 U/L (12-78); BLOOD UREA NITROGEN 24 mg/dl (7-18); BUN/CREATININE RATIO 23.9 (10-20); CALCIUM 9.1 mg/dl (8.5-10.1); CARBON DIOXIDE 27 mmol/L (21-32); CHLORIDE 105 mmol/L (98-107); GLUCOSE 173 mg/dl (70-99); POTASSIUM 4.2 mmol/L (3.5-5.1); SODIUM 138 mmol/L (136-145)
[2017-02-10 13:21] LABS: ALKALINE PHOSPHATASE 52 U/L (45-117); AST/SGOT 19 U/L (15-37); CHOLESTEROL 128 mg/dl (0-200); CHOLESTEROL/HDL RATIO 6.1; HDL CHOLESTEROL 21 mg/dl; LDL CHOLESTEROL CALCULATED 41 mg/dl; TRIGLYCERIDES 331 mg/dl (0-150); VERY LOW DENSITY LIPOPROT CALC 66 mg/dl
== END | disposition home or self-care (01) ==
LOC: C.LABPVFM 09:38
PROVIDERS: ATTEND Nurse Practitioner
DX: E78.2 Mixed hyperlipidemia (principal); I10 Essential (primary) hypertension; E11.65 Type 2 diabetes mellitus with hyperglycemia; E55.9 Vitamin D deficiency, unspecified

== ENCOUNTER 2017-04-18 12:08 | Emergency (ER) | payer OTHER ==
[~2017-04-18] VITALS: Ht 177.8 cm; Wt 107.9 kg
[2017-04-18 12:20] VITALS: TEMP 37.1; Ht 177.8 cm; Wt 107.9 kg
[2017-04-18] MEDS ORDERED: KETOROLAC TROMETHAMINE 30 MG/ML VIAL IV STA (12:42)
[2017-04-18 12:50] VITALS: O2SAT 97
--- NOTE | 2017-04-18 13:19 | DIAGNOSTIC IMAGING REPORT ---
CHEST ONE VIEW PORTABLE CLINICAL HISTORY: Fever and sepsis COMPARISON STUDY: 05/10/2012 FINDINGS: The heart is mildly enlarged. There is no failure. There is no focal pulmonary consolidation. There are no pleural effusions.[ IMPRESSION: No active disease in the chest. Electronically signed by: Eladio Bui M.D. 04/18/2017 1:17 PM Dictated Date/Time: 04/18/2017 1:17 PM
[2017-04-18 13:25] LABS: BASO % 0.6 %; BASO ABS # 0.03 K/uL (0-0.2); COMPLETE YES; EOS % 3.7 %; HEMATOCRIT 43.4 % (42-52); IG% 0.2 %; LYMPH % 41.3 %; LYMPH ABS # 2.12 K/uL (1.2-3.4); MEAN CELL VOLUME 86.8 fL (80-100); MEAN CORPUSCULAR HEMOGLOBIN 29.4 pg (25-34); MEAN CORPUSCULAR HGB CONC 33.9 g/dl (32-36); MEAN PLATELET VOLUME 10.1 fL (7.4-10.4); MONO % 10.9 %; NEUT % 43.3 %; PLATELET COUNT 272 K/uL (130-400); WHITE BLOOD COUNT 5.13 K/uL (4.8-10.8)
--- NOTE | 2017-04-18 13:32 | DIAGNOSTIC IMAGING REPORT ---
CT HEAD WITHOUT CONTRAST (CT) CLINICAL HISTORY: Severe headache. Hypertension. COMPARISON STUDY: 06/15/2016 TECHNIQUE: Axial CT of the brain is performed from the vertex to the skull base. IV contrast was not administered for this examination. A dose lowering technique was utilized adhering to the principles of ALARA. CT DOSE: 776.86 mGycm FINDINGS: No intra or extra-axial mass lesions are visualized. There is no CT evidence of acute cortical infarction. There is no evidence of midline shift. There is no acute hemorrhage. No calvarial fractures are visualized. There are mild white matter hypodensities likely on a small vessel basis. 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 There is no evidence of pathologic ventricular dilatation. There is no evidence of acute sinusitis IMPRESSION: No acute intracranial findings Electronically signed by: Eladio Bui M.D. 04/18/2017 1:30 PM Dictated Date/Time: 04/18/2017 1:28 PM
[2017-04-18 13:37] LABS: ALT/SGPT 36 U/L (12-78); AST/SGOT 22 U/L (15-37); BLOOD UREA NITROGEN 20 mg/dl (7-18); BUN/CREATININE RATIO 21.6 (10-20); CALCIUM 9.2 mg/dl (8.5-10.1); CARBON DIOXIDE 26 mmol/L (21-32); CHLORIDE 103 mmol/L (98-107); CREATININE 0.93 mg/dl (0.60-1.40); GLUCOSE 141 mg/dl (70-99); SODIUM 138 mmol/L (136-145)
[2017-04-18 13:42] LABS: ALKALINE PHOSPHATASE 57 U/L (45-117)
[2017-04-18] MEDS ORDERED: AMLO-114 PO (13:48)
[2017-04-18] MEDS ORDERED: LISI-725 PO (13:48)
[2017-04-18] MEDS ORDERED: FEXO1TAB49 PO (13:48)
[2017-04-18] MEDS ORDERED: FLUT50SP45 NAE (13:48)
[2017-04-18 14:09] LABS: LYME DISEASE AB IGG NEG (NEG); LYME DISEASE AB IGM NEG (NEG)
--- NOTE | 2017-04-18 14:20 | EMERGENCY ROOM VISIT NOTE ---
History Report prepared by Ailyn: Summer Jay Under the Supervision of: Dr. Familia Desir D.O. First contact with patient: 12:33 Chief Complaint: HYPERTENSION Stated Complaint: HIGH BLOOD PRESSURE, HEADACHE History of Present Illness The patient is a 76 year old male who presents to the Emergency Room with complaints of constant hypertension for the past 1.5 months. The patient states that he forgot to take his hydrochlorothiazide for 1.5 months. He has had hypertension and states that last week he developed a headache. This headache has been constant for the past week. He rates his pain as a 9/10 in severity. He went to [facility] today for his headache and was sent to the ED for further evaluation. The patient has been taking Tylenol for his symptoms. He denies chest pain, shortness of breath, nausea and vomiting. He was bit by a tick a couple of weeks ago. He denies any rashes. He does not take any blood thinners. Source of History: patient Onset: 1.5 months ago Position: other (global) Symptom Intensity: 9/10 Quality: other (hypertension) Timing: constant Modifying Factors (Relieving): tylenol Associated Symptoms: + headache, No chest pain, No SOB, No nausea, No vomiting, No rash Review of Systems See HPI for pertinent positives & negatives. A total of 10 systems reviewed and were otherwise negative. Past Medical & Surgical Medical Problems: (1) Esophageal reflux (2) Hypertension (3) Nocturia Family History No pertinent history stated. Social History Smoking Status: Former Smoker Drug Use: none Occupation Status: retired Current/Historical Medications Scheduled Amlodipine (Norvasc), 10 MG PO QAM Fenofibrate (Tricor), 160 MG PO DAILY Fexofenadine Hcl (Maryjane Allergy), 180 MG PO DAILY Hydrochlorothiazide (Hctz), 25 MG PO DAILY Lisinopril (Zestril), 30 MG PO DAILY Metformin Hcl (Glucophage), 1,000 MG PO BID Omeprazole (Omeprazole), 20 MG PO QAM Sitagliptin Phosphate (Januvia), 100 MG PO DAILY Scheduled PRN Fluticasone Propionate (Nasal) (Allergy Nasal [place] [address] Ho), 1 SPRAY JHONY DAILY PRN for PRN Tramadol (Ultram), 50 MG PO Q6H PRN for Pain Allergies Coded Allergies: Codeine (Verified Allergy, Unknown, 04/18/17) Morphine (Verified Adverse Reaction, Mild, HALLUCINATES, 04/18/17) Physical Exam Vital Signs Date Time Temp Pulse Resp B/P (MAP) Pulse Ox O2 Delivery O2 Flow Rate FiO2 04/18/17 14:04 77 20 148/77 99 Room Air 04/18/17 12:55 61 04/18/17 12:50 97 Room Air 04/18/17 12:20 37.1 71 18 173/82 97 Room Air Physical Exam CONSTITUTIONAL/VITAL SIGNS: Reviewed / noted above. GENERAL: Non-toxic in appearance. INTEGUMENTARY: Warm, dry, and [place]. HEAD: Normocephalic. EYES: without scleral icterus or trauma. ENT/OROPHARYNX: clear and moist. LYMPHADENOPATHY/NECK: Is supple without lymphadenopathy or meningismus. RESPIRATORY: Lungs clear and equal. CARDIOVASCULAR: Regular rate and rhythm. GI/ABDOMEN: Soft and nontender. No organomegaly or pulsatile mass. No rebound or guarding. Normal bowel sounds. EXTREMITIES: Warm and well perfused. BACK: No CVA tenderness. NEUROLOGICAL: Intact without focal deficits. PSYCHIATRIC: normal affect. MUSCULOSKELETAL: Normally developed with good muscle tone. Medical Decision & Procedures ER Provider Diagnostic Interpretation: Radiology results as stated below per my review and radiologist interpretation: CT HEAD WITHOUT CONTRAST (CT) CLINICAL HISTORY: Severe headache. Hypertension. COMPARISON STUDY: 06/15/2016 TECHNIQUE: Axial CT of the brain is performed from the vertex to the skull base. IV contrast was not administered for this examination. A dose lowering technique was utilized adhering to the principles of ALARA. CT DOSE: 776.86 mGycm FINDINGS: No intra or extra-axial mass lesions are visualized. There is no CT evidence of acute cortical infarction. There is no evidence of midline shift. There is no acute hemorrhage. No calvarial fractures are visualized. There are mild white matter hypodensities likely on a small vessel basis. 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 There is no evidence of pathologic ventricular dilatation. There is no evidence of acute sinusitis IMPRESSION: No acute intracranial findings Electronically signed by: Eladio Bui M.D. 04/18/2017 1:30 PM Dictated Date/Time: 04/18/2017 1:28 PM CHEST ONE VIEW PORTABLE CLINICAL HISTORY: Fever and sepsis COMPARISON STUDY: 05/10/2012 FINDINGS: The heart is mildly enlarged. There is no failure. There is no focal pulmonary consolidation. There are no pleural effusions.[ IMPRESSION: No active disease in the chest. Electronically signed by: Eladio Bui M.D. 04/18/2017 1:17 PM Dictated Date/Time: 04/18/2017 1:17 PM Laboratory Results 04/18/17 12:50 Red Blood Count 5.00, Mean Corpuscular Volume 86.8, Mean Corpuscular Hemoglobin 29.4, Mean Corpuscular Hemoglobin Concent 33.9, Mean Platelet Volume 10.1, Neutrophils (%) (Auto) 43.3, Lymphocytes (%) (Auto) 41.3, Monocytes (%) (Auto) 10.9, Eosinophils (%) (Auto) 3.7, Basophils (%) (Auto) 0.6, Neutrophils # (Auto ) 2.22, Lymphocytes # (Auto) 2.12, Monocytes # (Auto) 0.56, Eosinophils # (Auto ) 0.19, Basophils # (Auto) 0.03 04/18/17 12:50 Test 04/18/17 12:50 White Blood Count 5.13 K/uL (4.8-10.8) Red Blood Count 5.00 M/uL (4.7-6.1) Hemoglobin 14.7 g/dL (14.0-18.0) Hematocrit 43.4 % (42-52) Mean Corpuscular Volume 86.8 fL (80-100) Mean Corpuscular Hemoglobin 29.4 pg (25-34) Mean Corpuscular Hemoglobin Concent 33.9 g/dl (32-36) Platelet Count 272 K/uL (130-400) Mean Platelet Volume 10.1 fL (7.4-10.4) Neutrophils (%) (Auto) 43.3 % Lymphocytes (%) (Auto) 41.3 % Monocytes (%) (Auto) 10.9 % Eosinophils (%) (Auto) 3.7 % Basophils (%) (Auto) 0.6 % Neutrophils # (Auto) 2.22 K/uL (1.4-6.5) Lymphocytes # (Auto) 2.12 K/uL (1.2-3.4) Monocytes # (Auto) 0.56 K/uL (0.11-0.59) Eosinophils # (Auto) 0.19 K/uL (0-0.5) Basophils # (Auto) 0.03 K/uL (0-0.2) RDW Standard Deviation 43.4 fL (36.4-46.3) RDW Coefficient of Variation 13.8 % (11.5-14.5) Immature Granulocyte % (Auto) 0.2 % Immature Granulocyte # (Auto) 0.01 K/uL (0.00-0.02) Anion Gap 8.0 mmol/L (3-11) Est Creatinine Clear Calc Drug Dose 85.7 ml/min Estimated GFR () 93.4 Estimated GFR (Non- 80.6 BUN/Creatinine Ratio 21.6 (10-20) Calcium Level 9.2 mg/dl (8.5-10.1) Total Bilirubin 0.4 mg/dl (0.2-1) Direct Bilirubin 0.1 mg/dl (0-0.2) Aspartate Amino Transf (AST/SGOT) 22 U/L (15-37) Alanine Aminotransferase (ALT/SGPT) 36 U/L (12-78) Alkaline Phosphatase 57 U/L (45-117) Troponin I < 0.015 ng/ml (0-0.045) Total Protein 7.7 gm/dl (6.4-8.2) Albumin 4.2 gm/dl (3.4-5.0) Lyme Disease IgG Antibody NEG (NEG) Lyme Disease IgM Antibody NEG (NEG) Laboratory results as stated above per my review. Medications Administered Medications (Trade) Dose Ordered Sig/Garrick Route Start Time Stop Time Status Last Admin Dose Admin Ketorolac Tromethamine (Toradol Inj) 30 mg NOW STAT IV 04/18/17 12:42 04/18/17 12:46 DC 04/18/17 13:33 30 MG ECG Indication: other Rate (beats per minute): 63 Rhythm: normal sinus Findings: no acute ischemic change, no ectopy ED Course 1233: Previous medical records were reviewed. The patient was evaluated in room B10. A complete history and physical examination was performed. 1242: Toradol 30 mg IV 1407: I updated the patient and he is doing well. 1421: I reassessed the patient at this time. He is feeling better and resting comfortably. I discussed the results and treatment plan with the patient. I answered all pertaining questions that he had. He expressed understanding and verbalized agreement. The patient will be discharged home. Medical Decision Differential includes: Acute intracranial bleed, trauma, meningitis, encephalitis, increased intracranial pressure, mass or mass effect, facial or dental infection, temporal arteritis, CVA, TIA, acute hypertensive emergency, sinusitis, and carbon monoxide exposure. This is a 76-year-old male who presents to the ED with a chief complaint of a headache for the past greater than one week. The patient states that he has not been taking his hydrochlorothiazide for the past month and a half. He states that his blood pressure has been running high. He was evaluated at his PCPs office and they confirmed and made sure that he was getting his appropriate medications. The patient was sent here for the bad headache. He states that he was sent here for CT scan. The patient's initial blood pressure was 173/82. Vital signs are otherwise normal. His physical exam and neurologic exam was unremarkable. CBC is normal, complete metabolic panel was unremarkable, troponin was negative, chest x-ray is negative for acute disease, CT scan of the brain did not show acute process. The patient denies any visual changes. He has no tenderness to palpation of the temporal arteries. He does report a recent tick exposure. Lyme testing was negative. The patient did state that he was feeling better after the IV Toradol. His blood pressure improved to 145 systolic. The patient was treated with IV Toradol. He was told the results of the tests. He is felt to be stable for discharge. Medication Reconcilliation Current Medication List: was personally reviewed by me Blood Pressure Screening Patient's blood pressure: Elevated blood pressure Blood pressure disposition: Referred to PCP Impression Primary Impression: Hypertension Additional Impression: Headache Scribe Attestation The scribe's documentation has been prepared under my direction and personally reviewed by me in its entirety. I confirm that the note above accurately reflects all work, treatment, procedures, and medical decision making performed by me. Departure Information Dispostion Home / Self-Care Referrals Saida Sauer C.R.N.P (PCP) Patient Instructions My [facility] [address] Additional Instructions Your test results today were normal. Take your blood pressure medicine as prescribed. See your doctor if symptoms persist. Problem Qualifiers
[2017-04-18 14:58] VITALS: BP 133/70; PULSE 61; O2SAT 97
== END 2017-04-18 14:59 | disposition home or self-care (01) ==
LOC: C.EDB 12:13
DX: I10 Essential (primary) hypertension (principal); R51 Headache; K21.9 Gastro-esophageal reflux disease without esophagitis; R35.1 Nocturia; Z87.891 Personal history of nicotine dependence; Z79.899 Other long term (current) drug therapy

== ENCOUNTER → 2017-05-04 | Outpatient (CLI) | payer OTHER ==
[~2017-05-04] MED LIST changes: +AMLO-114 PO; -ESCI1TAB10 PO; +FEXO1TAB49 PO; +FLUT50SP45 NAE; +LISI-725 PO; -LSN20 PO
[2017-05-04 13:14] LABS: BLOOD UREA NITROGEN 33 mg/dl (7-18); BUN/CREATININE RATIO 26.9 (10-20); CALCIUM 9.4 mg/dl (8.5-10.1); CARBON DIOXIDE 25 mmol/L (21-32); CHLORIDE 104 mmol/L (98-107); CREATININE 1.22 mg/dl (0.60-1.40); GLUCOSE 250 mg/dl (70-99); POTASSIUM 4.2 mmol/L (3.5-5.1); SODIUM 137 mmol/L (136-145)
== END | disposition home or self-care (01) ==
LOC: C.LABPVFM 08:36
PROVIDERS: ATTEND Family Medicine
DX: I10 Essential (primary) hypertension (principal)

== ENCOUNTER 2017-06-26 13:27 | Emergency (ER) | payer OTHER ==
[~2017-06-26] VITALS: Ht 177.8 cm; Wt 102.1 kg
[2017-06-26 13:33] VITALS: TEMP 37; Ht 177.8 cm; Wt 102.1 kg
[2017-06-26] MEDS ORDERED: PROPARACAINE HCL 0.5% OP SOLN 15 ML BTL OP STA (13:51)
--- NOTE | 2017-06-26 14:24 | EMERGENCY ROOM VISIT NOTE ---
History First contact with patient: 13:46 Chief Complaint: EYE ASSESSMENT Stated Complaint: RIGHT EYE History of Present Illness The patient is a 77 year old male who presents to the Emergency Room with complaints of right-sided facial swelling, pain and blurry vision in the right eye. The patient initially got hit with a tree branch 5 days ago above the eye striking the eyebrow. There was a minor scratch. He started noticing facial redness and swelling so he went to his family doctor. She thought that he possibly had facial cellulitis. He was put on Omnicef and polymyxin eye drops. He has been taking these as prescribed with no improvement. He denies any fever or chills. He says that the eye feels like a burning sensation and is itchy. No foreign body sensation. Again, his vision is blurry in the right eye. No pain with eye movement. No photophobia. The patient wears glasses. No contacts. Review of Systems 10 system review performed and negative unless noted in HPI or below Past Medical/Surgical History Medical Problems: (1) Esophageal reflux (2) Hypertension (3) Nocturia Diabetes Social History Smoking Status: Former Smoker Drug Use: none Marital Status: Occupation Status: retired Current/Historical Medications Scheduled Amlodipine (Norvasc), 5 MG PO DAILY Cefdinir (Omnicef), 300 MG PO Q12H Escitalopram Oxalate (Lexapro), 20 MG PO DAILY Fenofibrate (Tricor), 160 MG PO DAILY Hydrochlorothiazide (Hctz), 25 MG PO DAILY Lisinopril (Zestril), 20 MG PO DAILY Metformin Hcl (Glucophage), 1,000 MG PO BID Qnvhqsky-Iovzhxwml-Qs Oph (Cortisporin Oph), 1 DROP OPR Q4H Omeprazole (Omeprazole), 20 MG PO QAM Sitagliptin Phosphate (Januvia), 100 MG PO DAILY Sulfa/Trimethoprim (Bactrim Ds 800MG/160MG), 1 TAB PO BID Valacyclovir Hcl (Valtrex), 1,000 MG PO TID Scheduled PRN Fluticasone Propionate (Nasal) (Allergy Nasal [place] [address] Ho), 1 SPRAY JHONY DAILY PRN for PRN Physical Exam Vital Signs Date Time Temp Pulse Resp B/P (MAP) Pulse Ox O2 Delivery O2 Flow Rate FiO2 06/26/17 18:00 75 16 152/72 98 Room Air 06/26/17 15:30 63 16 158/75 96 Room Air 06/26/17 13:33 37.0 56 18 154/81 97 Room Air Right Eye Acuity: 20/100 Left Eye Acuity: 20/30 Physical Exam VITALS: Vitals are noted on the nurse's note and reviewed by myself. Vital signs stable. GENERAL: 77-year-old male, in no acute distress, nondiaphoretic, well-developed well-nourished. HEAD: Significant erythema, edema and tenderness to palpation over the right side of the forehead extending down into the right cheek. There are scabbed lesions noted in the area. EYES: Pupils equal round and reactive to light and accommodation. The right eye is injected. Mild tearing noted. Extraocular movements intact without any pain. Slit lamp exam is severely limited secondary to periorbital edema Slit Lamp Examination was performed of the right eye(s). Alcaine drops were applied to the affected eye(s) for proper anesthetization. The affected eye(s) were stained with Fluorescein stain to precipitate adequate visualization of any conjunctival/scleral excoriations or ulcers. The patients face was comfortably rested on the chin guard of the slit lamp apparatus. The lights were dimmed and the affected eye(s) were thoroughly examined under microscopy using the blue light. No uptake was visualized. Again, the exam was limited secondary to periorbital edema NECK: Supple without nuchal rigidity. No lymphadenopathy No JVD. HEART: Regular rate and rhythm without murmurs gallops or rubs. LUNGS: Clear to auscultation bilaterally without wheezes, rales or rhonchi. No accessory muscle use. MUSCULOSKELETAL: Strength 5/5 throughout. NEURO: Patient was alert and oriented to person place and time. Normal sensation to touch. No focal neurological deficits. Medical Decision & Procedures ER Provider Diagnostic Interpretation: facial CT IMPRESSION: 1. No acute facial bone fracture or subluxation. 2. Mild right periorbital subcutaneous edema without evidence of drainable fluid collection, focal abscess or postseptal involvement. 3. Mildly prominent right level II lymph nodes are likely reactive. 4. Mild paranasal sinus disease. The above report was generated using voice recognition software. It may contain grammatical, syntax or spelling errors. Electronically signed by: Jack Carroll M.D. 06/26/2017 4:09 PM Dictated Date/Time: 06/26/2017 4:04 PM The status of this report is Signed. Draft = Not yet reviewed or approved by Radiologist. Signed = Reviewed and approved by Radiologist. <AttendingPhy></AttendingPhy> <FamilyPhy>Saida Sauer C.R.N.P</FamilyPhy> < PrimaryPhy>Saida Sauer C.R.N.P</PrimaryPhy> <UnitNumber>[id number]</ UnitNumber> <VisitNumber>[id number]</VisitNumber> <PatientName>REESE HIGUERA</ PatientName> <DateOfBirth>1940</DateOfBirth> <Location>[facility]</Location> < ServiceDate>06/26/17</ServiceDate> <MNE>ESINDI</MNE> <OrderingPhy>Vianca Carty PA-C</OrderingPhy> <OrderingPhyMNE>f rep ord dr squires</OrderingPhyMNE> < DictatingPhyMNE>f rep dict dr squires</DictatingPhyMNE> <CCListMNE>f rep ct mne</ CCListMNE> <AdmittingPhyMNE>f pt admit dr squires</AdmittingPhyMNE> <AttendingPhyMNE >f pt attend dr squires</AttendingPhyMNE> <ConsultingPhyMNE>f pt consult dr squires</ConsultingPhyMNE> <FamilyPhyMNE>f pt fam dr squires</FamilyPhyMNE> <OtherPhyMNE>f pt other dr squires</OtherPhyMNE> < PrimaryPhyMNE>f pt prim care dr squires</PrimaryPhyMNE Laboratory Results 06/26/17 14:39 Red Blood Count 5.14, Mean Corpuscular Volume 87.7, Mean Corpuscular Hemoglobin 29.8, Mean Corpuscular Hemoglobin Concent 33.9, Mean Platelet Volume 10.2, Neutrophils (%) (Auto) 56.0, Lymphocytes (%) (Auto) 26.0, Monocytes (%) (Auto) 16.5, Eosinophils (%) (Auto) 0.2, Basophils (%) (Auto) 1.0, Neutrophils # (Auto ) 3.39, Lymphocytes # (Auto) 1.57, Monocytes # (Auto) 1.00, Eosinophils # (Auto ) 0.01, Basophils # (Auto) 0.06 06/26/17 14:39 Test 06/26/17 14:39 White Blood Count 6.05 K/uL (4.8-10.8) Red Blood Count 5.14 M/uL (4.7-6.1) Hemoglobin 15.3 g/dL (14.0-18.0) Hematocrit 45.1 % (42-52) Mean Corpuscular Volume 87.7 fL (80-100) Mean Corpuscular Hemoglobin 29.8 pg (25-34) Mean Corpuscular Hemoglobin Concent 33.9 g/dl (32-36) Platelet Count 315 K/uL (130-400) Mean Platelet Volume 10.2 fL (7.4-10.4) Neutrophils (%) (Auto) 56.0 % Lymphocytes (%) (Auto) 26.0 % Monocytes (%) (Auto) 16.5 % Eosinophils (%) (Auto) 0.2 % Basophils (%) (Auto) 1.0 % Neutrophils # (Auto) 3.39 K/uL (1.4-6.5) Lymphocytes # (Auto) 1.57 K/uL (1.2-3.4) Monocytes # (Auto) 1.00 K/uL (0.11-0.59) Eosinophils # (Auto) 0.01 K/uL (0-0.5) Basophils # (Auto) 0.06 K/uL (0-0.2) RDW Standard Deviation 45.6 fL (36.4-46.3) RDW Coefficient of Variation 14.1 % (11.5-14.5) Immature Granulocyte % (Auto) 0.3 % Immature Granulocyte # (Auto) 0.02 K/uL (0.00-0.02) Erythrocyte Sedimentation Rate 15 mm/hr (0-14) Anion Gap 8.0 mmol/L (3-11) Est Creatinine Clear Calc Drug Dose 74.2 ml/min Estimated GFR () 82.0 Estimated GFR (Non- 70.7 BUN/Creatinine Ratio 25.7 (10-20) Calcium Level 9.5 mg/dl (8.5-10.1) C-Reactive Protein 0.52 mg/dl (0-0.29) Procalcitonin < 0.05 ng/ml (0-0.5) Medications Administered Medications (Trade) Dose Ordered Sig/Garrick Route Start Time Stop Time Status Last Admin Dose Admin Trimethoprim/ Sulfamethoxazole (Septra Ds 800/ 160MG Tab) 1 tab NOW ONCE PO 06/26/17 17:15 06/26/17 17:16 DC 06/26/17 17:15 1 TAB Valacyclovir HCl (Valtrex Tab) 1,000 mg NOW ONCE PO 06/26/17 17:15 06/26/17 17:16 DC 06/26/17 17:15 1,000 MG ED Course Patient was seen and examined Vital signs including blood pressure were reviewed medications list was verified with patient Labs were obtained, and a saline lock was established Imaging was performed The patient was reassessed and resting comfortably. We discussed the results of his workup. He voiced understanding. The case was also discussed with my supervising physician and on-call ophthalmology who are in agreement with my plan. The patient was given 1 dose of Bactrim and valacyclovir by mouth I reviewed discharge instructions the patient. They voiced understanding and had no further questions. Medical Decision Differential diagnosis: Shingles, facial cellulitis, post-septal cellulitis, corneal ulcer, laceration, abrasion, infection This patient is a 77-year-old male that presents to the emergency department complaining of right-sided facial redness, swelling and eye irritation. On exam , the patient had a fairly well demarcated erythema, edema and scabs noted to the right side of the face. I was unable to perform a very thorough slit lamp exam on the right eye due to periorbital edema. His CT is consistent with a facial cellulitis. There are no signs of post-septal cellulitis. I believe the patient likely has a facial cellulitis in addition to shingles. I discussed the case with ophthalmology due to the proximity of the eye. They will see the patient tomorrow morning for follow-up. The patient is currently taking Omnicef. I will add Bactrim for MRSA coverage. He will also be given valacyclovir to cover for shingles. The patient was urged to follow closely with not only ophthalmology but his primary care physician. He is comfortable with this plan, and agrees to return for worsening symptoms. This chart was completed in part utilizing [employer] Voice Recognition software. Attempts were made to minimize the grammatical errors, random word insertions, pronoun errors and incomplete sentences. Any formal questions or concerns about the content, text or information contained within the body of this dictation should be directly addressed to the provider for clarification. Medication Reconcilliation Current Medication List: was personally reviewed by me Blood Pressure Screening Patient's blood pressure: Elevated blood pressure Blood pressure disposition: Did not require urgent referral Consults Consulting Physician: Dr. Wagoner Impression Primary Impression: Facial cellulitis Additional Impression: Shingles Departure Information Dispostion Home / Self-Care Condition FAIR Prescriptions Valacyclovir Hcl (VALTREX) 1 Gm Tab 1000 MG PO TID for 7 Days, #21 TAB Prov: Vianca Carty PA-C 06/26/17 Sulfa/Trimethoprim (Bactrim Ds 800MG/160MG) Tab 1 TAB PO BID for 7 Days, #14 TAB Prov: Vianca Carty PA-C 06/26/17 Referrals Saida Sauer C.R.N.P (PCP) Arvin Villanueva M.D. Patient Instructions ED Shingles, My [facility] Additional Instructions You had been evaluated in the emergency department for redness and swelling and pain to the right side of the face and eye. This is likely due to a facial cellulitis in addition to shingles. Please continue the Omnicef as prescribed. Please stop the eyedrops Please take Bactrim and valacyclovir as prescribed. Please call the eye doctor first thing tomorrow morning for a follow-up appointment. They will see you in the office. Please also follow up with her primary care physician as scheduled on Tuesday Do not hesitate to return to the emergency department with any new, worsening or concerning symptoms; especially, fever, worsening redness, swelling, pain or vision Problem Qualifiers
[2017-06-26] MEDS ORDERED: OPTIRAY 320 IV PRN (14:30)
--- NOTE | 2017-06-26 14:31 | EMERGENCY ROOM VISIT NOTE ---
ED Visit Note First contact with patient: 13:38 This Patient was discussed with the physician Vianca Carty PA-C. The pertinent historical and physical exam findings were confirmed. I agree with the studies ordered and with the interpretations of these studies. I agree with the disposition and care plan.
[2017-06-26 14:53] LABS: BASO ABS # 0.06 K/uL (0-0.2); EOS % 0.2 %; EOS ABS # 0.01 K/uL (0-0.5); HEMATOCRIT 45.1 % (42-52); HEMOGLOBIN 15.3 g/dL (14.0-18.0); IG# 0.02 K/uL (0.00-0.02); LYMPH ABS # 1.57 K/uL (1.2-3.4); MEAN CELL VOLUME 87.7 fL (80-100); MEAN CORPUSCULAR HEMOGLOBIN 29.8 pg (25-34); MEAN CORPUSCULAR HGB CONC 33.9 g/dl (32-36); MEAN PLATELET VOLUME 10.2 fL (7.4-10.4); MONO % 16.5 %; NEUT ABS # 3.39 K/uL (1.4-6.5); PLATELET COUNT 315 K/uL (130-400); RED CELL DISTRIBUTION WIDTH CV 14.1 % (11.5-14.5); RED CELL DISTRIBUTION WIDTH SD 45.6 fL (36.4-46.3); WHITE BLOOD COUNT 6.05 K/uL (4.8-10.8)
[2017-06-26 15:12] LABS: CALCIUM 9.5 mg/dl (8.5-10.1); CREATININE 1.03 mg/dl (0.60-1.40); POTASSIUM 4.2 mmol/L (3.5-5.1)
[2017-06-26] MEDS ORDERED: CEFD1CAP14 PO (15:27)
[2017-06-26] MEDS ORDERED: NEOMSUS6 OPR (15:27)
[2017-06-26] MEDS ORDERED: AMLO-110 PO (15:27)
[2017-06-26] MEDS ORDERED: ESCI1TAB10 PO (15:27)
--- NOTE | 2017-06-26 16:11 | DIAGNOSTIC IMAGING REPORT ---
FACIAL-MAXILLOFACIAL WITH HISTORY: 77 years-old Male ?R facial/preseptal/postseptal cellulitis acute right-sided facial pain and sialitis. COMPARISON: CT head 04/18/2017 TECHNIQUE: Multiple axial CT images of the maxillofacial bones were obtained following the intravenous administration of 120 mL Optiray 320. A dose lowering technique was used consistent with the principals of SONI. FINDINGS: There is mild right periorbital and right for head soft tissue swelling without drainable fluid collection or foreign body identified. The bilateral globes appear to be within normal limits. The extraocular musculature appears to be within normal limits and symmetric bilaterally. No intraconal or extraconal abnormalities of either orbit. No post septal inflammatory changes. The bilateral lacrimal glands appear to be within normal limits. Mildly prominent right level 2 lymph nodes measure up to 1.2 x 1.0 cm. Imaged intracranial structures demonstrate no acute abnormality. There is atherosclerotic plaquing of the bilateral carotid vasculature. Bilateral internal carotid arteries appear patent. The bilateral vertebral arteries also appear to be patent. At least moderate atherosclerotic plaquing involves the left V4 segment of the vertebral artery. No acute facial bone fracture or dislocation. Mastoid air cells and middle ear cavities are clear. Mild mucosal thickening of the inferior maxillary sinuses and bilateral ethmoid air cells. Mild leftward bowing and spurring of nasal septum. Nasal bones and mandible appear intact. Degenerative changes involve the bilateral temporal mandibular joints. Multilevel degenerative changes are also noted within the cervical spine. IMPRESSION: 1. No acute facial bone fracture or subluxation. 2. Mild right periorbital subcutaneous edema without evidence of drainable fluid collection, focal abscess or postseptal involvement. 3. Mildly prominent right level II lymph nodes are likely reactive. 4. Mild paranasal sinus disease. The above report was generated using voice recognition software. It may contain grammatical, syntax or spelling errors. Electronically signed by: Jack Carroll M.D. 06/26/2017 4:09 PM Dictated Date/Time: 06/26/2017 4:04 PM
[2017-06-26] MEDS ORDERED: SULFAMETHOXAZOLE/TRIMETHOPRIM DS 800/160MG TAB PO ONE (17:15)
[2017-06-26] MEDS ORDERED: VALA1TAB2 PO (17:16)
[2017-06-26] MEDS ORDERED: SULF800T23 PO (17:16)
[2017-06-26 18:00] VITALS: BP 152/72; PULSE 75; O2SAT 98
== END 2017-06-26 18:15 | disposition home or self-care (01) ==
LOC: C.EDB 13:29
DX: L03.211 Cellulitis of face (principal); B02.9 Zoster without complications; K21.9 Gastro-esophageal reflux disease without esophagitis; I10 Essential (primary) hypertension; R35.1 Nocturia; E11.9 Type 2 diabetes mellitus without complications; Z87.891 Personal history of nicotine dependence; Z79.899 Other long term (current) drug therapy

== ENCOUNTER 2021-09-09 09:02 | Inpatient (IN) ==
--- NOTE | 2021-08-21 10:26 | PAT Medication Instructions ---
Medication Instructions Date of Service August 21, 2021 Home Medications Medication Instructions Recorded blood sugar diagnostic (OneTouch #100 ea 04/10/19 Ultra Blue Test Strip) blood-glucose meter (OneTouch #1 ea 04/10/19 Ultra2 Meter) lancets (OneTouch UltraSoft #100 ea 04/10/19 Lancets) lisinopril 40 mg tablet 40 mg PO QAM #30 tab 12/14/19 glipizide 10 mg tablet, extended 10 mg PO QAM #30 tab 07/09/20 release 24 hr fenofibrate 160 mg tablet 160 mg PO QAM #30 tab 09/16/20 metformin 1,000 mg tablet 1,000 mg PO BID #60 tab 01/08/21 lidocaine 4 % topical patch 1 patch TOPICAL DAILY PRN #30 ea 06/19/21 (Salonpas (lidocaine)) hydrochlorothiazide 25 mg tablet 25 mg PO QAM #30 tab 08/06/21 docusate sodium 100 mg capsule 100 mg PO BID PRN #60 cap 08/17/21 (Colace) labetalol 100 mg tablet 150 mg PO BID #90 tab 08/17/21 magnesium hydroxide 400 mg/5 mL 30 ml PO DAILY PRN #355 ml 08/17/21 oral suspension (Milk of Magnesia) meloxicam 7.5 mg tablet 7.5 mg PO DAILY #30 tab 08/17/21 tramadol 50 mg tablet 50 mg PO Q8H PRN #45 tab 08/17/21 omeprazole 40 mg capsule,delayed 40 mg PO QAM #30 cap 08/20/21 release aspirin 81 mg tablet,delayed release 81 mg PO QAM Centrum Silver 1 tab PO QAM lisinopril 40 mg tablet 40 mg PO QAM glipizide 10 mg tablet, extended release 24 hr 10 mg PO QAM fenofibrate 160 mg tablet 160 mg PO QAM metformin 1,000 mg tablet 1,000 mg PO BID lidocaine 4 % topical patch (Salonpas (lidocaine)) 1 patch TOPICAL DAILY PRN hydrochlorothiazide 25 mg tablet 25 mg PO QAM amlodipine 10 mg tablet 10 mg PO QAM polyethylene glycol 3350 17 gram oral powder packet (Miralax) 17 g PO QAM simvastatin 20 mg tablet 20 mg PO QAM spironolactone 25 mg tablet 25 mg PO QAM docusate sodium 100 mg capsule (Colace) 100 mg PO BID PRN labetalol 100 mg tablet 150 mg PO BID magnesium hydroxide 400 mg/5 mL oral suspension (Milk of Magnesia) 30 ml PO DAILY PRN meloxicam 7.5 mg tablet 7.5 mg PO DAILY tramadol 50 mg tablet 50 mg PO Q8H PRN omeprazole 40 mg capsule,delayed release 40 mg PO QAM Continue as directed lidocaine 4 % topical patch (Salonpas (lidocaine)) 1 patch TOPICAL DAILY PRN (avoid placement near surgery site) ASK your surgeon for instructions meloxicam 7.5 mg tablet 7.5 mg PO DAILY ASK your prescriber and surgeon aspirin 81 mg tablet,delayed release 81 mg PO QAM STOP taking 48 hours before surgery fenofibrate 160 mg tablet 160 mg PO QAM DO NOT take the morning of surgery Centrum Silver 1 tab PO QAM lisinopril 40 mg tablet 40 mg PO QAM glipizide 10 mg tablet, extended release 24 hr 10 mg PO QAM metformin 1,000 mg tablet 1,000 mg PO BID hydrochlorothiazide 25 mg tablet 25 mg PO QAM polyethylene glycol 3350 17 gram oral powder packet (Miralax) 17 g PO QAM spironolactone 25 mg tablet 25 mg PO QAM docusate sodium 100 mg capsule (Colace) 100 mg PO BID PRN magnesium hydroxide 400 mg/5 mL oral suspension (Milk of Magnesia) 30 ml PO DAILY PRN Take morning of surgery With a small sip of water, OTHERWISE NOTHING TO EAT OR DRINK AFTER MIDNIGHT: amlodipine 10 mg tablet 10 mg PO QAM simvastatin 20 mg tablet 20 mg PO QAM labetalol 100 mg tablet 150 mg PO BID tramadol 50 mg tablet 50 mg PO Q8H PRN (okay to take up to 4 hours prior to surgery if needed) omeprazole 40 mg capsule,delayed release 40 mg PO QAM Take evening before surgery metformin 1,000 mg tablet 1,000 mg PO BID docusate sodium 100 mg capsule (Colace) 100 mg PO BID PRN (if needed) labetalol 100 mg tablet 150 mg PO BID magnesium hydroxide 400 mg/5 mL oral suspension (Milk of Magnesia) 30 ml PO DAILY PRN (if needed) tramadol 50 mg tablet 50 mg PO Q8H PRN (if needed) Other Notes If you have any questions please call us at [phone] or [phone] or [phone] or [phone]
--- NOTE | 2021-08-26 11:14 | Anesthesiology Consultation ---
Date of Service August 26, 2021 Assessment & Plan (1) Encounter for pre-operative examination: - COVID screening: Per assessment on 08/26: Travel screen negative, no known COVID-19 positive contacts or current COVID-19 related symptoms. Patient boy cowan. Surgeon arranging preop COVID testing. Awaiting results. - Check BSG AM DOS - Diabetes: Patient was taking Metformin 1000mg BID, glipizide 10mg QAM. Hgba1c performed by PCP 08/17/21 was elevated at 9.4% (glucose 322). PCP added Jardiance 25mg daily and stopped nighttime dose of Metformin. Repeat glucose 08/26/21 was 261. Surgeon's office made aware. Patient will be seeing PCP again prior to surgery. Awaiting surgeon-ordered PCP evaluation (scheduled 08/31; [facility]). Chart Review Chart Review: Patient seen in Pre Admission Testing Pre-Anesthesia Teaching/Discussion Notes: Instructed NPO after midnight before surgery,except medications with 15 cc of water. Medication instructions provided according to the PAT guidelines. History Surgery Operation Date: 09/09/21 10:05 Proposed Procedures p L2-L5 Decompression Fusion Spinal Cord Monitoring - Ambrose Mina DO Height/Weight Height: 5 ft 10 in Weight: 96.8 kg Allergies Allergy/AdvReac Type Severity Reaction Status Date / Time codeine AdvReac Mild Severe N/V Verified 08/24/21 16:00 morphine AdvReac Mild Hallucinati Verified 08/24/21 16:00 ons rizatriptan AdvReac Mild Nausea Verified 08/24/21 13:19 Medications Home Medications Medication Instructions Recorded Confirmed Last Taken aspirin 81 mg tablet,delayed 81 mg PO QAM tab 04/08/19 08/24/21 07/02/19 06:00 release blood sugar diagnostic (OneTouch #100 ea 04/10/19 08/24/21 Unknown Ultra Blue Test Strip) blood-glucose meter (OneTouch #1 ea 04/10/19 08/24/21 Unknown Ultra2 Meter) lancets (OneTouch UltraSoft #100 ea 04/10/19 08/24/21 Unknown Lancets) iwflimbg-ksk-oyxfz acid 0.4 1 tab PO QAM 06/21/19 08/24/21 07/02/19 06:00 mg-lycopene 300 mcg-lutein 250 mcg tablet (Centrum Silver) lisinopril 40 mg tablet 40 mg PO QAM #30 tab 12/14/19 08/24/21 Unknown glipizide 10 mg tablet, extended 10 mg PO QAM #30 tab 07/09/20 08/24/21 Unknown release 24 hr fenofibrate 160 mg tablet 160 mg PO QAM #30 tab 09/16/20 08/24/21 Unknown lidocaine 4 % topical patch 1 patch TOPICAL DAILY PRN #30 ea 06/19/21 08/24/21 Unknown (Salonpas (lidocaine)) hydrochlorothiazide 25 mg tablet 25 mg PO QAM #30 tab 08/06/21 08/24/21 Unknown amlodipine 10 mg tablet 10 mg PO QAM 08/10/21 08/24/21 Unknown polyethylene glycol 3350 17 gram 17 g PO QAM 08/10/21 08/24/21 Unknown oral powder packet (Miralax) simvastatin 20 mg tablet 20 mg PO QAM 08/10/21 08/24/21 Unknown spironolactone 25 mg tablet 25 mg PO QAM 08/10/21 08/24/21 Unknown docusate sodium 100 mg capsule 100 mg PO BID PRN #60 cap 08/17/21 08/24/21 Unknown (Colace) labetalol 100 mg tablet 150 mg PO BID #90 tab 08/17/21 08/24/21 Unknown magnesium hydroxide 400 mg/5 mL 30 ml PO DAILY PRN #355 ml 08/17/21 08/24/21 Unknown oral suspension (Milk of Magnesia) meloxicam 7.5 mg tablet 7.5 mg PO DAILY #30 tab 08/17/21 08/24/21 Unknown tramadol 50 mg tablet 50 mg PO Q8H PRN #45 tab 08/17/21 08/24/21 Unknown omeprazole 40 mg capsule,delayed 40 mg PO QAM #30 cap 08/20/21 08/24/21 Unknown release empagliflozin 10 mg tablet 10 mg PO DAILY #30 tab 08/24/21 08/24/21 Unknown (Jardiance) metformin 1,000 mg tablet 1,000 mg PO DAILY #30 tab 08/24/21 08/24/21 Unknown Past Medical History Medical History Diabetes GERD (gastroesophageal reflux disease) Hyperlipidemia Lumbar radiculopathy, right Osteoarthritis Somatic dysfunction cervical region, lower extremities, lumbar region, pelvic region, rib, thoracic region Spinal stenosis of lumbar region Exercise / Class Metabolic Activity III < 4 Walking/Shop/Light housework Past Family History Family History Mother Family history of diabetes mellitus Other No family history of adverse response to anesthesia Denies family history of Ovarian cancer Prostate cancer Myocardial infarction Breast cancer Colorectal cancer Past Surgical History Surgical History History of esophagogastroduodenoscopy (EGD) History of tooth extraction History of total left knee replacement (TKR) revision History of total right knee replacement (TKR) + revisions Past Anesthesia History No Hx of Anesthesia Complications and No Family Hx of Anesthesia Complications History of PONV No Hx of PONV and Hx of Motion Sickness (Rare) Social History Smoking Status: Former smoker tobacco type: cigarettes Do You Dip or Chew Tobacco: No Smoking End Date: QUIT 35 YEARS AGO Hx Alcohol Use: No Hx Substance Use: No substance use type: does not use Review of Systems Patient denies chest pain, shortness of breath, fever, chills, cough, wheezing, palpitations. Physical Exam Vital Signs VITALS BP 138/70 P 59 TEMP 98.7 SP02 95%RA RESP 16 PHYSICAL Mildly decreased cervical extension range of motion. Full TMJ range of motion. TMD 3.5 finger breaths Mallampati Score 3 Dentition: full upper denture, edentulous Lungs: clear throughout to auscultation Cardiac: regular rate and rhythm, no murmurs noted Spine: normal Carotid arteries: negative bruit Extremities: no edema Short quinonez Lab Results Anesthesia Preop Results Results Anesthesia Widget: WBC 6.04 K/uL (4.8-10.8) 08/17/21 Hgb 15.5 g/dL (14.0-18.0) 08/17/21 Hct 46.8 % (42-52) 08/17/21 Plt 368 K/uL (130-400) 08/17/21 Na 136 mmol/L (136-145) 08/26/21 K 4.4 mmol/L (3.5-5.1) 08/26/21 Cl 100 mmol/L (98-107) 08/26/21 CO2 25 mmol/L (21-32) 08/26/21 BUN 36 mg/dl (6-23) H 08/26/21 Creat 1.43 mg/dl (0.6-1.4) H 08/26/21 Glucose Level 261 mg/dl (70-99(Fasting)) H 08/26/21 PT 10.9 Seconds (9.0-12.0) 08/26/21 PTT 27.0 Seconds (21.0-31.0) 08/26/21 INR 1.0 (0.9-1.1) 08/26/21 TSH 0.715 uIu/ml (0.300-4.500) 08/17/21 HA1c 9.4 % (4.5-5.6) H 08/17/21 Urine Color Yellow 08/26/21 Urine Appearance Clear (Clear) 08/26/21 Urine pH 5.0 (4.5-7.5) 08/26/21 Urine Specific [place] 1.040 (1.000-1.030) H 08/26/21 Urine Protein Negative (Negative) 08/26/21 Urine Glucose (UA) 3+ (Negative) H 08/26/21 Urine Ketones Negative (Negative) 08/26/21 Urine Blood Negative (Negative) 08/26/21 Urine Nitrite Negative (Negative) 08/26/21 Urine Bilirubin Negative (Negative) 08/26/21 Urine Urobilinogen Negative (Negative) 08/26/21 Urine Leukocyte Esterase Negative (Negative) 08/26/21 Blood Type A Positive 08/26/21 Antibody Screen NEGATIVE 08/26/21 Lab Comments: Nohemy at surgeon's office made aware of elevated hgba1c/glucose* Testing Electrocardiogram Date: 08/26/21 SB at 58bpm. NS STA. No significant change compared to 02/02/18 per supervisor cutting and boning review. Chest X-Ray Date: 08/26/21 FINDINGS: No lines and tubes are seen. The cardiomediastinal silhouette is normal. The lungs are clear. No evidence of pleural effusion or pneumothorax. IMPRESSION: No acute chest disease.
[~2021-09-09 09:02] MED LIST changes: +ACETAMINOPHEN 500 MG TAB PO SCH; -AMLO-114 PO; +CeleBREX 200 MG CAP PO SCH; -FENO1TAB PO; -FEXO1TAB49 PO; -FLUT50SP45 NAE; +GABAPENTIN 300 MG CAP PO SCH; -GLC/500 PO; -HYDR25TA4 PO; +LIDOCAINE 2% 2 ML VIAL/AMP(20MG/ML) INFIL ONE; -LISI-725 PO; +LR 15ML/HR IV SCH; +MIDAZOLAM HCL 1 MG/ML 2ML VIAL ONE; -OMEP20TA PO; +PROPOFOL IV EMULSION 10 MG/ML 20 ML VIAL IV ONE; +ROCURONIUM BROMIDE 10 MG/ML 5 ML VIAL IV ONE; -SITA100T3 PO; -TRAM-10 PO; +ceFAZolin 2000MG 2,000 MG/15 ML SYR IV SCH; +fentaNYL citrate 100 MCG/2 ML VIAL ONE
--- NOTE | 2021-09-09 09:51 | History & Physical Bridge Note ---
Date of Service September 09, 2021 History & Physical Bridge Note I have examined the patient, reviewed the History & Physical and in the interval since the performance of the History & Physical I have noted the following changes of clinical significance: no changes noted
--- NOTE | 2021-09-09 09:52 | History & Physical Report ---
Date of Service September 09, 2021 Assessment & Plan (1) Neurogenic claudication due to lumbar spinal stenosis: Plan: L2-L5 decompression and fusion History of Present Illness Chief Complaint: Back and bilateral leg pain Primary Care Provider: Adams Key DO This is a 81-year-old male presents with car persistent back and bilateral leg pain. Failing course of nonoperative care is here for surgical invention. Allergies Allergy/AdvReac Type Severity Reaction Status Date / Time codeine AdvReac Mild Severe N/V Verified 09/09/21 09:38 morphine AdvReac Mild Hallucinati Verified 09/09/21 09:38 ons rizatriptan AdvReac Mild Nausea Verified 09/09/21 09:38 Home Medications Medication Instructions Recorded Confirmed Type aspirin 81 mg tablet,delayed 81 mg PO QAM tab 04/08/19 09/09/21 History release blood sugar diagnostic (OneTouch #100 ea 04/10/19 08/31/21 Rx Ultra Blue Test Strip) blood-glucose meter (OneTouch #1 ea 04/10/19 08/31/21 Rx Ultra2 Meter) lancets (OneTouch UltraSoft #100 ea 04/10/19 08/31/21 Rx Lancets) mqcdoxad-exr-wdlcv acid 0.4 1 tab PO QAM 06/21/19 09/09/21 History mg-lycopene 300 mcg-lutein 250 mcg tablet (Centrum Silver) lisinopril 40 mg tablet 40 mg PO QAM #30 tab 12/14/19 09/09/21 Rx glipizide 10 mg tablet, extended 10 mg PO QAM #30 tab 07/09/20 09/09/21 Rx release 24 hr fenofibrate 160 mg tablet 160 mg PO QAM #30 tab 09/16/20 09/09/21 Rx lidocaine 4 % topical patch 1 patch TOPICAL DAILY PRN #30 ea 06/19/21 09/09/21 Rx (Salonpas (lidocaine)) hydrochlorothiazide 25 mg tablet 25 mg PO QAM #30 tab 08/06/21 09/09/21 Rx amlodipine 10 mg tablet 10 mg PO QAM 08/10/21 09/09/21 History polyethylene glycol 3350 17 gram 17 g PO QAM 08/10/21 09/09/21 History oral powder packet (Miralax) simvastatin 20 mg tablet 20 mg PO QAM 08/10/21 09/09/21 History spironolactone 25 mg tablet 25 mg PO QAM 08/10/21 09/09/21 History docusate sodium 100 mg capsule 100 mg PO BID PRN #60 cap 08/17/21 09/09/21 Rx (Colace) labetalol 100 mg tablet 150 mg PO BID #90 tab 08/17/21 09/09/21 Rx magnesium hydroxide 400 mg/5 mL 30 ml PO DAILY PRN #355 ml 08/17/21 09/09/21 Rx oral suspension (Milk of Magnesia) meloxicam 7.5 mg tablet 7.5 mg PO DAILY #30 tab 08/17/21 09/09/21 Rx tramadol 50 mg tablet 50 mg PO Q8H PRN #45 tab 08/17/21 09/09/21 Rx omeprazole 40 mg capsule,delayed 40 mg PO QAM #30 cap 08/20/21 09/09/21 Rx release empagliflozin 10 mg tablet 10 mg PO DAILY #30 tab 08/24/21 09/09/21 Rx (Jardiance) metformin 1,000 mg tablet 1,000 mg PO DAILY #30 tab 08/24/21 09/09/21 Rx Past Med/Surg History Medical History (Updated 09/09/21 @ 09:52 by Ambrose Mina DO) Acute upper respiratory infection Diabetes Diverticulosis GERD (gastroesophageal reflux disease) Hyperlipidemia Lumbar radiculopathy, right Osteoarthritis Somatic dysfunction cervical region, lower extremities, lumbar region, pelvic region, rib, thoracic region Spinal stenosis of lumbar region Surgical History History of esophagogastroduodenoscopy (EGD) History of tooth extraction History of total left knee replacement (TKR) revision History of total right knee replacement (TKR) + revisions Family History Mother Family history of diabetes mellitus Other No family history of adverse response to anesthesia Denies family history of Ovarian cancer Prostate cancer Myocardial infarction Breast cancer Colorectal cancer Social History Smoking Status: Former smoker Years Smoked: 6; Smoking End Date: QUIT 35 YEARS AGO; Second Hand Exposure: No; Do You Dip or Chew Tobacco: No; Hx Alcohol Use: No Hx Substance Use: No Preferred Language: Cymraes Communication Ability: Effective Preparing Box Tender Required: No Beliefs That Will Affect Care: None marital status: / Current Living Situation: Alone current occupational status: retired How many Children do You have: 3 Feels Safe at Home: Yes Safety Concerns: Feels Safe At This Time Childhood Exposure to Second-Hand Smoke: No caffeine: Yes Dental Care, Regularly: No Physical Activity Frequency: 3-4 Times per Week Seatbelt Use: always Sunscreen Use: No Assistive Devices: Denture - Upper and Glasses Physical Exam Physical Exam: Patient is alert and oriented Heart regular in rhythm Lungs clear
[2021-09-09] MEDS ORDERED: NovoLIN-R INSULIN PER UNIT CHARGE ONE (10:01)
[2021-09-09] MEDS ORDERED: HYDROmorphone INJ 1 MG/ML SYRINGE IV PRN ×2 (10:06→15:13)
[2021-09-09] MEDS ORDERED: ONDANSETRON INJ 2 MG/ML 2 ML VIAL IV PRN ×2 (10:06→15:13)
[2021-09-09] MEDS ORDERED: ATROPINE SULFATE 0.1 MG/ML 10ML SYR IV PRN (10:06)
[2021-09-09] MEDS ORDERED: ePHEDrine sulfate 50 MG/ML AMP IV PRN (10:06)
[2021-09-09] MEDS ORDERED: BUPIVACAINE/EPINEPHRINE 0.25% 1:200,000 30 ML VIAL ONE (10:11)
[2021-09-09] MEDS ORDERED: ceFAZolin 330 MG/ML 1 GM VIAL ONE (10:11)
[2021-09-09] MEDS ORDERED: PHENYLEPHRINE HCL 10 MG/ML VIAL ONE (10:55)
[2021-09-09] MEDS ORDERED: ROCURONIUM BROMIDE 10 MG/ML 5 ML VIAL IV ONE (10:56)
[2021-09-09] MEDS ORDERED: FLOSEAL HEMOSTATIC MATRIX 10ML TOP ONE ×2 (11:07→13:29)
[2021-09-09] MEDS ORDERED: NEOSTIGMINE METHYLSULFATE 1 MG/ML 10ML VIAL ONE (11:23)
[2021-09-09] MEDS ORDERED: GLYCOPYRROLATE 0.2 MG/ML VIAL ONE (11:23)
[2021-09-09] MEDS ORDERED: ePHEDrine sulfate 50 MG/ML AMP ONE (11:23)
[2021-09-09] MEDS ORDERED: INSULIN HUMAN REGULAR SC SCH (11:30)
--- NOTE | 2021-09-09 13:32 | Operative Report ---
Post Operative Report Pre & Post Diagnosis Operation Date: 09/09/21 10:25 Pre-Op Diagnosis: Spinal Stenosis, Lumbar Region Post-Op Diagnosis: Spinal Stenosis, Lumbar Region I identified the patient and participated in the time-out.: Yes Procedure Operation Date: 09/09/21 10:25 Actual Procedures #1 lumbar decompression bilateral medial facetectomies and foraminotomies L1-L2, L2-L3, L3-L4 and L4-5. #2 posterior spinal fusion L2-5. #3 placed posterior segmental instrumentation L2-5. #4 interbody fusion L2-L3, L3-L4 and L4-5. #5 placement of 13 x 26 mm spiral cage at L2-L3, 14 x 26 mm spiral cage at L3-L4 and 15 x 26 mm spiral cage at L4-L5. #6 placement locally harvested morselized autograft in the posterior gutters. #7 placement 3 collagen sponge, master graft in the posterior gutters and I factor interbody space. Surgeon Ambrose Mina, Blanket Cutting Machine Operator Jess Krueger Estimated Blood Loss 550 Findings Consistent with Post-Op Diagnosis Specimens None Indications This is a 81-year-old male presents with above-mentioned diagnosis after failing course of nonoperative care is here for the above-mentioned procedure. Description of Procedure Patient was met with identified informed consent obtained. Patient was then taken to the operative suite underwent ablation placed in a prone position on the Aureliano table on top of the Samuel frame. All bony prominences well-padded eyes inspected to ensure no external pressure placed upon the. This point the lumbar spine was prepped and draped in a sterile fashion. Sharp dissection with the assistance of Bovie cautery was performed down to and exposing the lamina and transverse processes of L2 L3-L4-L5 bilaterally. From a caudal cephalad fashion complete laminectomy of L4 L3 L2 and partial laminectomy of L1 was performed including bilateral medial facetectomies and foraminotomies addressing severe spinal stenosis. Pedicle screws then placed in L2-L3 L4-5 bilaterally with assistance of fluoroscopy and proper sized stone placed. By way of a transforaminal portion right complete discectomy of L for L5 was performed endplates curetted to subcortical bleeding bone and a 15 x 26 mm Spira cage filled with I factor tapped in position. Then proceeded L4-[address] of a transforaminal portion right complete discectomy performed endplates curetted to subcortically bone and a 14 x 26 mm Spira cage filled with I factor tapped in position. Lastly proceeded to L2-L3 and again by way of a transforaminal portion right complete discectomy performed endplates curetted to subcortical bleeding bone and a 13 x 26 mm Spira cage filled with I factor tapped in position. The rods then compressed locked in final position bilaterally. The transverse processes of L2-L3-L4 and L5 burred to subcortically bone. Infuse collagen sponge master graft local graft was placed in the posterior gutters. 15 round TONA drain inserted. The incision was then closed with 1 Vicryl the fascia 2-0 Vicryl subcutaneously and 4 Monocryl for final skin closure. Steri-Strip sterile dressings placed. Patient will continue PACU stable condition. Please note spinal cord monitoring was utilized at the procedure no changes noted. Lastly Jess Krueger was present at the entire procedure and while the patient positioning complex portions of the surgery and final skin closure. I attest to the content of the Intraoperative Record and any orders documented therein. Any exceptions are noted below.
--- NOTE | 2021-09-09 13:55 | Fluoroscopy Report ---
FL lumbar spine 2-3V CLINICAL HISTORY: L2-L5 decompression and fusion COMPARISON STUDY: None. FLUOROSCOPY TIME: 36 seconds. FINDINGS: 2 fluoroscopic spot images of the lumbar spine demonstrate posterior decompression fusion f rom L2 through L5 with pedicle screws and rods. Disc spaces are placed. The hardware appears intact. IMPRESSION: Fluoroscopic assistance provided for L2-L5 posterior decompression and fusion ACT 112: Negative or not required by law. Electronically signed by: Jeremy Elaine M.D. 09/09/2021 1:53 PM
[2021-09-09] MEDS: fentaNYL citrate 100 MCG/2 ML VIAL IV PRN ×2 (14:19→14:24)
--- NOTE | 2021-09-09 14:32 | Anesthesiology Progress Note ---
Date of Service September 09, 2021 Anesthesia Post Procedure Vital Signs Vital Signs: Temp Pulse Pulse Resp BP Pulse Ox 09/09/21 14:20 56 L 12 113/69 95 09/09/21 14:10 48 L 15 120/67 97 09/09/21 14:00 49 L 12 115/67 97 09/09/21 13:53 36.2 C L 50 L 12 108/55 L 99 09/09/21 09:50 36.7 C 73 18 154/101 H Transfer of Care Handoff Completed per policy Notes Mental Status: alert / awake / arousable and participated in evaluation Patient Amnestic to Procedure: Yes Nausea / Vomiting: adequately controlled Pain: adequately controlled Airway Patency, RR, SpO2: stable & adequate BP & HR: stable & adequate Hydration State: stable & adequate Anesthetic Complications: no major complications apparent and Pt Satisfied with anesthetic care
[2021-09-09] MEDS ORDERED: PROMETHAZINE HCL 12.5 MG in SODIUM CHLORIDE 0.9% 50 ML IV PRN (15:13)
[2021-09-09] MEDS ORDERED: LORazepam 0.5 MG TAB PO PRN (15:13)
[2021-09-09] MEDS ORDERED: METOCLOPRAMIDE HCL INJ 5 MG/ML 2 ML VIAL IV PRN (15:13)
[2021-09-09] MEDS ORDERED: traMADol HCL 50 MG TABLET PO PRN (15:13)
[2021-09-09] MEDS ORDERED: DO NOT ADMINISTER FLU VACCINE PRN (15:13)
[2021-09-09] MEDS ORDERED: HYDROmorphone INJ 0.5 MG/0.5 ML SYR IV PRN (15:13)
[2021-09-09] MEDS ORDERED: LORazepam 2 MG/1 ML VIAL IV PRN (15:13)
[2021-09-09] MEDS ORDERED: diphenhydrAMINE Capsule 25 MG CAP PO PRN (15:13)
[2021-09-09] MEDS ORDERED: PHARMACY GLYCEMIC MGMT CONSULT PRN ×2 (15:13→15:27)
[2021-09-09] MEDS ORDERED: FAMOTIDINE 20 MG TAB PO PRN (15:13)
[2021-09-09] MEDS ORDERED: MAGNESIUM HYDROXIDE SUSP 30 ML UDC PO PRN ×2 (15:13)
[2021-09-09] MEDS ORDERED: ALUMINUM/MAGNESIUM SUSP 30 ML UDC PO PRN (15:13)
[2021-09-09] MEDS ORDERED: ONDANSETRON 4 MG OD TAB PO PRN (15:13)
[2021-09-09] MEDS ORDERED: ACETAMINOPHEN 1,000 MG/100 ML VIAL IV PRN (15:13)
[2021-09-09] MEDS ORDERED: oxyCODONE HCL IR 5 MG TAB (IMMEDIATE RELEASE) PO PRN (15:13)
[2021-09-09] MEDS ORDERED: DO NOT ADMINISTER PNEUMOCOCCAL VACCINE PRN (15:13)
[2021-09-09] MEDS ORDERED: NALOXONE HCL 0.4 MG/1 ML VIAL/CARP IV PRN (15:13)
[2021-09-09] MEDS ORDERED: SOD PHOSPHATE/SOD BIPHOSPHATE ENEMA 132 ML BTL PR PRN (15:13)
[2021-09-09] MEDS ORDERED: hydrOXYzine HCl 25 MG TAB PO PRN (15:13)
[2021-09-09] MEDS ORDERED: bisacodyL 10 MG SUPP PR PRN (15:13)
--- NOTE | 2021-09-09 15:30 | Hospitalist Consultation ---
Date of Consultation September 09, 2021 Assessment & Plan (1) Neurogenic claudication due to lumbar spinal stenosis: POD#0 lumbar spinal decompression and posterior spinal fusion by Dr Mina Pain and routine post op management (2) Esophageal reflux: Switch omeprazole to pantoprazole per hospital formulary (3) Diabetes: Hemoglobin A1C 9.4 on August however started on Jardiance - therefore this has been dealt with and likely can be discharged on his usual home meds Hold Jardiance, metformin and glipizide while here Pharmacy consulted for glycemic control by primary orthopedic team (4) Hypertension: Continue usual home medications amlodipine, HCTZ, labetalol, lisinopril and spironolactone with hold parameters VTE Prophylaxis - per primary orthopedic team Diet - heart healthy, T2DM Disposition - thank you for the consult, we will review the patient with AM labs tomorrow History of Present Illness Reason for Consultation: Medical Management Attending Physician: Ambrose Mina, DO History of Present Illness Terrell Coffey is a 81 year old male who presents as an elective lumbar decompression and posterior spinal fusion performed today by Dr Mina. Estimated blood loss 550ml. He reports doing well post operatively with already improvement in his back pain. He has chronic medical conditions with: Hypertension - well controlled on amlodipine, HCTZ, labetalol, lisinopril and spironolactone, no history of pulmonary edema or heart failure T2DM - prior HbA1C more elevated at 9.4, he feels this was diet related. Started on Jardiance since then. Pharmacy consulted for glycemic control while here. Heartburn - well controlled on omeprazole Allergies Allergy/AdvReac Type Severity Reaction Status Date / Time codeine AdvReac Mild Severe N/V Verified 09/09/21 09:38 morphine AdvReac Mild Hallucinati Verified 09/09/21 09:38 ons rizatriptan AdvReac Mild Nausea Verified 09/09/21 09:38 Home Medications Medication Instructions Recorded Confirmed Type aspirin 81 mg tablet,delayed 81 mg PO QAM tab 04/08/19 09/09/21 History release blood sugar diagnostic (OneTouch #100 ea 04/10/19 08/31/21 Rx Ultra Blue Test Strip) blood-glucose meter (OneTouch #1 ea 04/10/19 08/31/21 Rx Ultra2 Meter) lancets (KONUXTouch UltraSoft #100 ea 04/10/19 08/31/21 Rx Lancets) htnaktza-ugu-qupdf acid 0.4 1 tab PO QAM 06/21/19 09/09/21 History mg-lycopene 300 mcg-lutein 250 mcg tablet (Centrum Silver) lisinopril 40 mg tablet 40 mg PO QAM #30 tab 12/14/19 09/09/21 Rx glipizide 10 mg tablet, extended 10 mg PO QAM #30 tab 07/09/20 09/09/21 Rx release 24 hr fenofibrate 160 mg tablet 160 mg PO QAM #30 tab 09/16/20 09/09/21 Rx lidocaine 4 % topical patch 1 patch TOPICAL DAILY PRN #30 ea 06/19/21 09/09/21 Rx (Salonpas (lidocaine)) hydrochlorothiazide 25 mg tablet 25 mg PO QAM #30 tab 08/06/21 09/09/21 Rx amlodipine 10 mg tablet 10 mg PO QAM 08/10/21 09/09/21 History polyethylene glycol 3350 17 gram 17 g PO QAM 08/10/21 09/09/21 History oral powder packet (Miralax) simvastatin 20 mg tablet 20 mg PO QAM 08/10/21 09/09/21 History spironolactone 25 mg tablet 25 mg PO QAM 08/10/21 09/09/21 History docusate sodium 100 mg capsule 100 mg PO BID PRN #60 cap 08/17/21 09/09/21 Rx (Colace) labetalol 100 mg tablet 150 mg PO BID #90 tab 08/17/21 09/09/21 Rx magnesium hydroxide 400 mg/5 mL 30 ml PO DAILY PRN #355 ml 08/17/21 09/09/21 Rx oral suspension (Milk of Magnesia) meloxicam 7.5 mg tablet 7.5 mg PO DAILY #30 tab 08/17/21 09/09/21 Rx tramadol 50 mg tablet 50 mg PO Q8H PRN #45 tab 08/17/21 09/09/21 Rx omeprazole 40 mg capsule,delayed 40 mg PO QAM #30 cap 08/20/21 09/09/21 Rx release empagliflozin 10 mg tablet 10 mg PO DAILY #30 tab 08/24/21 09/09/21 Rx (Jardiance) metformin 1,000 mg tablet 1,000 mg PO DAILY #30 tab 08/24/21 09/09/21 Rx Patient History Medical History (Updated 09/10/21 @ 02:34 by Zachery Gonzalez MD) Acute upper respiratory infection Diabetes Diverticulosis GERD (gastroesophageal reflux disease) Hyperlipidemia Hypertension Lumbar radiculopathy, right Osteoarthritis Somatic dysfunction cervical region, lower extremities, lumbar region, pelvic region, rib, thoracic region Spinal stenosis of lumbar region Surgical History History of esophagogastroduodenoscopy (EGD) History of tooth extraction History of total left knee replacement (TKR) revision History of total right knee replacement (TKR) + revisions Family History Mother Family history of diabetes mellitus Other No family history of adverse response to anesthesia Denies family history of Ovarian cancer Prostate cancer Myocardial infarction Breast cancer Colorectal cancer Social History Smoking Status: Former smoker Years Smoked: 6; Smoking End Date: QUIT 35 YEARS AGO; Second Hand Exposure: No; Do You Dip or Chew Tobacco: No; Hx Alcohol Use: No Hx Substance Use: No Preferred Language: Ukrainian Communication Ability: Effective Software Licensing Executive Required: No Beliefs That Will Affect Care: None marital status: / Current Living Situation: Alone current occupational status: retired How many Children do You have: 3 Feels Safe at Home: Yes Safety Concerns: Feels Safe At This Time Childhood Exposure to Second-Hand Smoke: No caffeine: Yes Dental Care, Regularly: No Physical Activity Frequency: 3-4 Times per Week Seatbelt Use: always Sunscreen Use: No Assistive Devices: Walker Review of Systems Review of Systems: All systems reviewed & are unremarkable except as noted in HPI & below Physical Exam Constitutional: WD/WN, vitals as above ENMT: external ear and nose normal, oropharynx normal Neck: trachea midline, no thyromegaly Respiratory: normal respiratory effort, lungs clear to auscultation Cardiovascular: RRR, no murmur, no edema Vessels: dorsalis pedis pulses present Gastrointestinal (Abdomen): Inspection/Auscultation: normal bowel sounds Percussion/Palpation: abdomen soft; abdomen nontender, no guarding and abdomen not rigid Musculoskeletal: NV intact with 1st MTPJ dorsiflex/plantarflex normal b/l, cap refill < 2s in toes Skin: no rashes, warm and dry Neurologic: moves all extremities and awake; not confused Psychiatric: A+Ox3, euthymic affect Results & Data Results & Data ([facility]) Vital Signs (Past 12 Hours) Vital Signs Temp Pulse Pulse Resp BP Pulse Ox 09/09/21 14:30 61 15 121/74 97 09/09/21 14:20 56 L 12 113/69 95 09/09/21 14:10 48 L 15 120/67 97 09/09/21 14:00 49 L 12 115/67 97 09/09/21 13:53 36.2 C L 50 L 12 108/55 L 99 09/09/21 09:50 36.7 C 73 18 154/101 H Laboratory Results Abnormal lab results 09/09/21 09/09/21 09/09/21 Range/Units 09:27 09:39 13:04 POC Glucose 272 H 223 H (70-99) mg/dl Crossmatch See Detail 09/09/21 09/09/21 09/09/21 Range/Units 13:52 17:09 20:35 POC Glucose 240 H 209 H 202 H (70-99) mg/dl Crossmatch 09/09/21 Range/Units 23:48 POC Glucose 159 H (70-99) mg/dl Crossmatch PG Care Time/CCT Total # of Minutes Spent Total Time Spent with Patient: Total time spent is greater than 50% in coordination of care (as documented) at patient's floor/unit and/or counseling patient: Coding Level of Care Code 83597 Inpt Consult Level 3 Diagnoses Neurogenic claudication due to lumbar spinal stenosis M48.062 Esophageal reflux K21.9 Esophagitis presence: without esophagitis Diabetes E11.9 Hypertension I10 (1) Esophageal reflux Esophagitis presence: without esophagitis Qualified Code(s): K21.9 - Gastro- esophageal reflux disease without esophagitis
[2021-09-09] MEDS ORDERED: GLUCAGON FOR INJ 1 MG VIAL IM PRN (15:45)
[2021-09-09] MEDS ORDERED: GLUCOSE 10 TABS/TUBE PO PRN (15:45)
[2021-09-09] MEDS ORDERED: DEXTROSE 50% 50 ML SYRINGE IV PRN (15:45)
[2021-09-09] MEDS ORDERED: CARBOHYDRATES FOR HYPOGLYCEMIA PO PRN (15:45)
[2021-09-09] MEDS ORDERED: GLUCOSE 40% GEL 15 GM TUBE PO PRN (15:45)
[2021-09-09] MEDS: SODIUM CHLORIDE 0.9% 1000ML 1,000 ML IV SCH (16:05)
[2021-09-09] MEDS ORDERED: INSULIN ASPART PER UNIT SC SCH (18:00)
[2021-09-09] MEDS: ceFAZolin 2000MG 2,000 MG/15 ML SYR IV SCH (19:23)
[2021-09-09] MEDS: DOCUSATE SODIUM/SENNA 50/8.6MG TAB PO SCH (21:16)
[2021-09-09] MEDS: LABETALOL HCL 100 MG TAB PO SCH (21:17)
[2021-09-09] MEDS: INSULIN ASPART PER UNIT SC SCH (21:19)
[2021-09-09] MEDS: INSULIN GLARGINE SOLOSTAR 100 UNITS/ML 3 ML PEN SC SCH (21:22)
[2021-09-10] MEDS: INSULIN ASPART PER UNIT SC SCH ×6 (00:22→20:30)
[2021-09-10] MEDS: SODIUM CHLORIDE 0.9% 1000ML 1,000 ML IV SCH ×3 (01:53→22:17)
[2021-09-10] MEDS: ceFAZolin 2000MG 2,000 MG/15 ML SYR IV SCH (03:53)
[2021-09-10] MEDS: ACETAMINOPHEN 500 MG TAB PO PRN ×2 (05:44→12:14)
[2021-09-10] MEDS: POLYETHYLENE (MIRALAX) 17 GM PACK PO SCH ×2 (05:45→12:17)
[2021-09-10 07:22] LABS: Basophils # (auto) 0.02 K/uL (0-0.2); Basophils % (auto) 0.2 %; Eosinophils # (auto) 0.01 K/uL (0-0.5); Eosinophils % (auto) 0.1 %; Hematocrit (blood only) 37.2 % (42-52); Hemoglobin 12.4 g/dL (14.0-18.0); Immature Granulocytes # (auto) 0.04 K/uL (0.00-0.02); Immature Granulocytes % (auto) 0.3 %; Lymphocytes # (auto) 1.82 K/uL (1.2-3.4); Lymphocytes % (auto) 14.9 %; Mean Corpuscular Hemoglobin 30.2 pg (25-34); Mean Corpuscular Hgb Conc 33.3 g/dL (32-36); Mean Corpuscular Volume 90.7 fL (80-100); Mean Platelet Volume 10.8 fL (7.4-10.4); Monocytes # (auto) 1.05 K/uL (0.11-0.59); Monocytes % (auto) 8.6 %; Neutrophils # (auto) 9.27 K/uL (1.4-6.5); Neutrophils % (auto) 75.9 %; Platelet Count 298 K/uL (130-400); RDW Coefficient of Variation 13.5 % (11.5-14.5); RDW Standard Deviation 44.4 fL (36.4-46.3); White Blood Count 12.21 K/uL (4.8-10.8)
[2021-09-10 07:45] LABS: BUN Creatinine Ratio 26.4 (10-20); Calcium 8.3 mg/dl (8.5-10.1); Creatinine Clr Calc Pharmacy 57.1 ml/min; Est GFR (African American) 65.6 ml/min; Est GFR (Non-African American) 56.6 ml/min; Potassium 4.1 mmol/L (3.5-5.1)
[2021-09-10] MEDS: LABETALOL HCL 100 MG TAB PO SCH (08:13)
[2021-09-10] MEDS: CEROVITE ADV FORMULA TAB PO SCH (08:13)
[2021-09-10] MEDS: ASPIRIN 81 MG ECTAB PO SCH (08:13)
[2021-09-10] MEDS: PANTOprazole 40 MG TAB PO SCH (08:13)
[2021-09-10] MEDS: dexAMETHasone 6 MG in SYRINGE 0 ML IV SCH (08:15)
[2021-09-10] MEDS: INSULIN GLARGINE SOLOSTAR 100 UNITS/ML 3 ML PEN SC SCH (08:20)
[2021-09-10] MEDS: SIMVASTATIN 20 MG TAB PO SCH (08:33)
[2021-09-10] MEDS ORDERED: SPIRONOLACTONE 25 MG TAB PO SCH (09:00)
[2021-09-10] MEDS ORDERED: NON-FORMULARY MEDICATION (Glipizide 10 mg tablet extended release 24hr) PO SCH (09:00)
[2021-09-10] MEDS ORDERED: POLYETHYLENE (MIRALAX) 17 GM PACK PO SCH (09:00)
[2021-09-10] MEDS ORDERED: hydroCHLOROthiazide 25 MG TAB PO SCH (09:00)
[2021-09-10] MEDS ORDERED: amLODIPine BESYLATE 5 MG TAB PO SCH (09:00)
[2021-09-10] MEDS ORDERED: lisinopril 40 MG TAB PO SCH (09:00)
--- NOTE | 2021-09-10 13:22 | Hospitalist Progress Note ---
Date of Service September 10, 2021 Assessment & Plan (1) Neurogenic claudication due to lumbar spinal stenosis: Plan: POD#1 lumbar spinal decompression and posterior spinal fusion by Dr Mina - Recommend postoperative pain management, PT/OT, incentive spirometry, DVT pro phylaxis--> all at discretion of primary team - patient with bowel regimen on board. Highly encouraged ambulation. Although + abd cramping, no pain/N/V and is passing flatus. Abd nondistended and soft. If worsens, would consider KUB for post-op Ileus. - recommend removal of duckworth catheter to encourage ambulation-- per primary team (2) Esophageal reflux: Plan: Switch omeprazole to pantoprazole per hospital formulary (3) Diabetes: Plan: Hemoglobin A1C 9.4 on August however started on Jardiance - therefore this has been dealt with and likely can be discharged on his usual home meds Hold Jardiance, metformin and glipizide while here Pharmacy consulted for glycemic control by primary orthopedic team (4) Hypertension: Plan: Continue usual home medications amlodipine, HCTZ, labetalol, lisinopril and spironolactone with hold parameters Plan: mild leukocytosis noted today-- likely steroid induced At this time, will sign off on this patient. Do not hesitate to reconsult should a problem arise. Thank you for allowing us to participate in the care of this patient. Will d/w Dr. Ambrose. Admission and Anticipated Discharge Date Admission Date: September 09, 2021 Subjective Patient seen on daily rounds today. he is POD #1 s/p lumbar decompression with fusion. Reports adequate pain control. Tolerating pain medication without ill effects. Still with a Duckworth catheter indwelling. Has not had a bowel movement but reports "feeling as if he needs to". He has received MiraLAX and a suppository and reports some mild spasms in his abdomen with a cramping sensation. Denies abdominal pain, nausea or vomiting. Is passing gas. Review of Systems Review of Systems: All systems reviewed and are unremarkable except as noted in HPI and below Denies fevers, chills, headache, nasal congestion, sore throat, cough, chest pain, shortness of breath, palpitations, orthopnea, PND, abdominal pain, nausea, vomiting, diarrhea, constipation, dysuria, hematuria, frequency, back pain, joint pain or swelling, easy bruising or bleeding, skin lesions or rashes. Physical Exam Physical Exam: General: Resting comfortably in his hospital bed. He does not appear ill or toxic. NAD. HEENT: Head is AT/NC. Buccal mucosa is moist and pink Neck: No JVD. Negative hepatojugular reflex Cardiac: RRR with 1/6 RAMON Lungs: CTA without W/R/R Abdomen: Normoactive X4. Soft and nontender in all quadrants. Extremities: No peripheral clubbing cyanosis or edema. Indwelling TONA drain to the back noted. Surgical dressing dry and intact. Neuro: A&O X4. Cranial nerves II through XII are grossly intact. No focal neuro deficits Skin: No obvious skin lesions or rashes Psych: Appropriate affect. Pleasant and cooperative Results & Data Results & Data ([facility]) Vital Signs (Past 12 Hours) Vital Signs Temp Pulse Resp BP Pulse Ox 09/10/21 11:00 36.9 C 54 L 16 130/63 94 09/10/21 07:07 36.7 C 65 16 151/72 H 96 09/10/21 03:51 36.9 C 65 18 134/67 95 Laboratory Results 09/10/21 06:23 09/10/21 06:23 PG Care Time/CCT Total # of Minutes Spent Total Time Spent with Patient: Total time spent is greater than 50% in coordination of care (as documented) at patient's floor/unit and/or counseling patient: Coding Level of Care Code 76129 Inpt Consult Level 3 Diagnoses Neurogenic claudication due to lumbar spinal stenosis M48.062 Esophageal reflux K21.9 Esophagitis presence: without esophagitis Diabetes E11.9 Hypertension I10 (1) Esophageal reflux Esophagitis presence: without esophagitis Qualified Code(s): K21.9 - Gastro- esophageal reflux disease without esophagitis
--- NOTE | 2021-09-10 13:47 | Pharmacy Report ---
Pharmacy Glycemic Short Note 2 - Date of Service September 10, 2021 - Glycemic Short BSG Results (Last 24 hours): 09/09/21 09/09/21 09/09/21 13:52 17:09 20:35 Glucose POC Glucose 240 H 209 H 202 H 09/09/21 09/10/21 09/10/21 23:48 03:42 06:23 Glucose 169 H POC Glucose 159 H 142 H 09/10/21 09/10/21 08:01 12:15 Glucose POC Glucose 240 H 182 H OUTPATIENT ANTIDIABETIC REGIMEN: * Jardiance 10 mg daily * Glipizide 10 mg daily * Metformin 1 g daily ASSESSMENT: * 81 year old male, POD1 spinal decompression surgery by Dr Mina, receiving Dexamethasone 6mg IV Q24 hours x 3 days. * Type 2 diabetic managed on oral agents outpatient, uncontrolled, A1c 9.4%. * Patient had 14 units of basal insulin yesterday, fasting blood sugar at goal, but steroids started today, will increase. * Tighten CF/CR for better steroid coverage, will need to loosen back after steroids are complete. PLAN FOR INPATIENT GLYCEMIC CONTROL: * Hold outpatient oral diabetes medications * Basal insulin * Lantus 30 units SQ QAM * 15 units SQ HS for BSG > 200mg/dl * Bolus insulin * NovoLog per scale ACHS or Q6hrs while NPO * Goal Range: Low 110 mg/dL - High 140 mg/dL * Correction Factor: 15 mg/dL/unit * Nutritional / Prandial insulin per carb ratio of 1 unit per 5 grams CHO consumed
[2021-09-10] MEDS ORDERED: SODIUM CHLORIDE 0.9% 1000ML 500 ML IV ONE (14:41)
[2021-09-10] MEDS ORDERED: SODIUM CHLORIDE 0.9% 500 ML IV SCH (14:45)
--- NOTE | 2021-09-10 14:48 | Orthopedic Progress Note ---
Date of Service September 10, 2021 Assessment & Plan (1) Neurogenic claudication due to lumbar spinal stenosis: Plan: This time continue physical therapy advance his bowel regimen hopefully discharge home in next few days. Admission and Anticipated Discharge Date Admission Date: September 09, 2021 Subjective Back pain controlled leg pain improved Physical Exam Physical Exam: Patient is good strength testing. Appears comfortable. Results & Data ([facility]) Vital Signs (Past 12 Hours) Vital Signs Temp Pulse Resp BP Pulse Ox 09/10/21 14:13 52 L 109/58 L 94 09/10/21 13:52 59 L 19 91/45 L 95 09/10/21 11:00 36.9 C 54 L 16 130/63 94 09/10/21 07:07 36.7 C 65 16 151/72 H 96 09/10/21 03:51 36.9 C 65 18 134/67 95
[2021-09-10] MEDS ORDERED: Nursing to Pharmacy Communication SCH ×2 (15:30→17:15)
[2021-09-10] MEDS: DOCUSATE SODIUM/SENNA 50/8.6MG TAB PO SCH (20:24)
[2021-09-10] MEDS ORDERED: INSULIN GLARGINE SOLOSTAR 100 UNITS/ML 3 ML PEN SC SCH (21:00)
[2021-09-11] MEDS: ACETAMINOPHEN 500 MG TAB PO PRN (07:21)
[2021-09-11 08:45] LABS: Appearance Urine Clear (Clear); Bilirubin Urine Negative (Negative); Blood Urine Negative (Negative); Color Urine Yellow; Glucose Urine UA 3+ (Negative); Ketones Urine 1+ (Negative); Leukocyte Esterase Urine Negative (Negative); Nitrite Urine Negative (Negative); Protein Urine Negative (Negative); Specific Gravity Urine 1.032 (1.000-1.030); Urobilinogen Urine Negative (Negative)
[2021-09-11] MEDS ORDERED: INSULIN GLARGINE SOLOSTAR 100 UNITS/ML 3 ML PEN SQ SCH (09:00)
[2021-09-11] MEDS ORDERED: INSULIN GLARGINE SOLOSTAR 100 UNITS/ML 3 ML PEN SC SCH (09:00)
[2021-09-11] MEDS: INSULIN ASPART PER UNIT SC SCH ×2 (09:04→12:41)
[2021-09-11] MEDS: SIMVASTATIN 20 MG TAB PO SCH (09:07)
[2021-09-11] MEDS: ASPIRIN 81 MG ECTAB PO SCH (09:07)
[2021-09-11] MEDS: CEROVITE ADV FORMULA TAB PO SCH (09:07)
[2021-09-11] MEDS: PANTOprazole 40 MG TAB PO SCH (09:08)
--- NOTE | 2021-09-11 09:12 | Hospitalist Progress Note ---
Date of Service September 11, 2021 Assessment & Plan (1) Neurogenic claudication due to lumbar spinal stenosis: Plan: POD#2 lumbar spinal decompression and posterior spinal fusion by Dr Mina - Recommend postoperative pain management, PT/OT, incentive spirometry, DVT pro phylaxis--> all at discretion of primary team - moving bowel and bladder without issues. Reynolds Catheter has since been removed (2) Delirium: Plan: -Patient answering all questions appropriately but has been making comments to staff that seems slightly paranoid (concerns regarding the FBI). He is otherwise oriented X4 -Currently, not on any centrally acting medications that could be causing delirium or altered his mental status -Urinalysis obtained and not grossly infected -Afebrile and no clinical suspicion of infectious process -Suspect likely all hospital-acquired delirium in the postsurgical setting -We will likely do better in his home environment. Discussed with primary team and plan is for discharge later today. No medical contraindications to this (3) Orthostasis: Plan: -Low BP yesterday afternoon (90s/50s). Has since improved with IV hydration overnight and with holding his antihypertensive medications (BP currently 159/71) -Did have a 20 point drop in his systolic blood pressure when standing but completely asymptomatic with this. Recommend continued compression stockings -Hold antihypertensive agents today but can likely resume tomorrow (4) Esophageal reflux: Plan: Switch omeprazole to pantoprazole per hospital formulary (5) Diabetes: Plan: Hemoglobin A1C 9.4 on August however started on Jardiance - therefore this has been dealt with and likely can be discharged on his usual home meds Hold Jardiance, metformin and glipizide while here Pharmacy consulted for glycemic control by primary orthopedic team (6) Hypertension: Plan: Continue usual home medications amlodipine, HCTZ, labetalol, lisinopril and spironolactone with hold parameters Plan: No contraindications to proceed with D/C as planned as likely will do better in home environment. Would avoid opiate medications as this can increase confusion. Will d/w Dr. Ambrose. Admission and Anticipated Discharge Date Admission Date: September 09, 2021 Subjective Patient seen on daily rounds today. Vocalizes no complaints or concerns. Pain is adequately controlled. Has not been utilizing anything for pain. Reports only has pain with initial movement but tolerable. Has since had a bowel movement. Moving bladder without difficulty. Seems to answer all questions appropriately but nursing reports has seemed paranoid. Was asking "about the FBI" this morning. Urinalysis obtained and within normal limits. No obvious infection noted. Has multiple centrally acting medications ordered as needed but has not utilized any of these. In regards to his blood pressure, this was low yesterday afternoon. He was provided IV hydration overnight and his antihypertensive agents were held this morning. Blood pressure is improved (currently 159/71). His orthostatic vital signs were obtained showing some mild orthostatic hypotension as his systolic blood pressure dropped to 120 but he was asymptomatic with this. He was not dizzy or lightheaded. Review of Systems Review of Systems: All systems reviewed and are unremarkable except as noted in HPI and below Denies fevers, chills, headache, nasal congestion, sore throat, cough, chest pain, shortness of breath, palpitations, orthopnea, PND, abdominal pain, nausea, vomiting, diarrhea, constipation, dysuria, hematuria, frequency, back pain, joint pain or swelling, easy bruising or bleeding, skin lesions or rashes. Physical Exam Physical Exam: General: Resting comfortably in his hospital bed. He does not appear ill or toxic. NAD. HEENT: Head is AT/NC. Buccal mucosa is moist and pink Neck: No JVD. Negative hepatojugular reflex Cardiac: RRR with 1/6 RAMON Lungs: CTA without W/R/R Abdomen: Normoactive X4. Soft and nontender in all quadrants. Extremities: No peripheral clubbing cyanosis or edema. Indwelling TONA drain to the back noted. Surgical dressing dry and intact. Neuro: A&O X4. Cranial nerves II through XII are grossly intact. No focal neuro deficits Skin: No obvious skin lesions or rashes Psych: Appropriate affect. Pleasant and cooperative Results & Data Results & Data ([facility]) Vital Signs (Past 12 Hours) Vital Signs Temp Pulse Resp BP Pulse Ox 09/11/21 06:05 37.2 C 67 18 159/71 H 94 09/10/21 21:51 36.9 C 65 20 143/66 H 94 Laboratory Results 09/10/21 06:23 09/10/21 06:23 PG Care Time/CCT Total # of Minutes Spent Total Time Spent with Patient: Total time spent is greater than 50% in coordination of care (as documented) at patient's floor/unit and/or counseling patient: Coding Level of Care Code 16273 Inpt Consult Level 4 Diagnoses Neurogenic claudication due to lumbar spinal stenosis M48.062 Esophageal reflux K21.9 Esophagitis presence: without esophagitis Diabetes E11.9 Hypertension I10 Delirium R41.0 Orthostasis I95.1 (1) Esophageal reflux Esophagitis presence: without esophagitis Qualified Code(s): K21.9 - Gastro- esophageal reflux disease without esophagitis
[2021-09-11] MEDS: dexAMETHasone 6 MG in SYRINGE 0 ML IV SCH (10:47)
--- NOTE | 2021-09-11 10:53 | Discharge Summary ---
Date of Service September 11, 2021 Admission HPI Per Admitting Provider This is a 81-year-old male presents with car persistent back and bilateral leg pain. Failing course of nonoperative care is here for surgical invention. Principal Diagnosis Lumbar spinal stenosis with neurogenic medication Discharge Data Allergies Allergy/AdvReac Type Severity Reaction Status Date / Time codeine AdvReac Mild Severe N/V Verified 09/09/21 09:38 morphine AdvReac Mild Hallucinati Verified 09/09/21 09:38 ons rizatriptan AdvReac Mild Nausea Verified 09/09/21 09:38 Consultations 09/09/21 15:13 Consult Hospitalist Routine Procedures Performed Operation Date: 09/09/21 10:25 Actual Procedures p L2-L5 Decompression Fusion Spinal Cord Monitoring(Not Applicable) - Ambrose Mina DO Ordered Studies 09/09/21 10:25 FL lumbar spine 2-3V Routine Hospital Course (1) Neurogenic claudication due to lumbar spinal stenosis: Patient underwent multilevel lumbar decompression fusion tolerated this well was taken to orthopedic floor postoperatively. Postop day 1 he was up and ambulating breast postop #2. Marked improvement of his back and leg pain. X- rays negative testing. Socially discharged home. Discharge orders instructions from the chart for further review. Total Time Total Time Spent Total Time Spent (In Minutes): 20 minutes Discharge Plan Discharge Items Patient Disposition: Home - Self-Care Reason For Visit: Spinal Stenosis, Lumbar Region Discharge Diagnosis: lumbar stenosis Activity: As commented below Non-emergency contact: Primary Care Provider Call non-emergency contact if: you have any medication questions Follow-up/Referrals: Adams Key DO [Primary Care Provider] - Diet: Regular Addtl Attending Provider Instructions: ACTIVITY RECOMMENDATIONS: SELF CARE INSTRUCTIONS AFTER THORACIC/LUMBAR FUSIONS 1. You may walk to your tolerance. It is good exercise for your legs and back. Expect some back and intermittent leg aches and pains. 2. You may perform "counter-top" level activities (make a sandwich, neto with a project, etc.). 3. No bending or lifting of more than 10 pounds or back twisting of any nature (roll like a log when turning in bed). 4. You may ride in a car for 20-30 minutes at a time. No driving until after your first visit with your doctor. 5. Frequent changes of position and restricting sitting to 30 minutes at a time will help limit the amount of back spasms and stiffness you may experience. 6. You may discontinue the use of ambulatory aids (cane, crutches, etc.) once your strength and confidence allow. 7. You may machine printer hose the shower and let water strike your incision when you arrive home at least once daily. Do not take a tub bath, sit in a hot tub or go into a swimming pool until after your first recheck in the office. SPECIAL CARE INSTRUCTIONS: VERY IMPORTANT TO READ AND REVIEW A. Your surgical incision has been closed with a cosmetic suture under the skin that will dissolve in about 6 weeks. In 14 days, you can use a pair of clean scissors and cut the suture that is left outside of the skin at the ends of your incision. 1. The small skin tapes can be removed 7 days after surgery if they have not fallen off by that point. 2. You may keep the wound open to air as much as possible to promote healing after post-op day number 5 unless told otherwise by your doctor. 3. If you think the wound looks like it is becoming infected (redness or worsening drainage) and/or you are experiencing fever, chill or worsening back pain and muscle spasms, contact the office so that we may evaluate you as soon as possible. B. Complications are uncommon, but please contact us if you have any signs or symptoms of: 1. wound infection (fever higher than 102.5 degrees F, redness, separation of wound, drainage, or increasing pain from the incision) 2. blood clots in legs (pain, swelling, redness and warmth in legs) 3. urinary tract infection (fever higher than 102.5 degrees F, burning upon urination or increased frequency of urination) 4. nerve problems (inability to walk on your toes or heels, numbness, loss of bowel or bladder control) 5. any other symptoms that concern you C. Please call the office at if you have any concerns or questions about your operation or recovery. D. No smoking! Smoking drastically decreases the chance of a solid fusion. E. Do not take any anti-inflammatory medications (Indocin, Advil, Motrin, Aspirin, Naprosyn, etc.) as these may inhibit the chance of a solid fusion. Tylenol is okay to take for pain. MANAGING PAIN AFTER SPINAL SURGERY 1. Narcotic medication is intended for short-term use and will be provided for surgical pain. Surgical pain usually lasts for a period of 4-6 weeks. Narcotic medication includes Percocet, Vicodin, Darvocet, Tylenol #3 or Lortab. 2. Longer-term pain is more appropriately treated with non-narcotic medication such as Tylenol ES. 3. Muscle spasm is not appropriately treated with narcotics. Muscle relaxers such as Soma, Flexeril or Skelaxin can be used along with Tylenol ES. 4. Remember that we all live with some "aches and pains". This is not unusual or uncommon after an injury or as we get older. a. Back pain is expected and may include muscle spasms for 4 to 6 weeks after surgery. The pain should gradually improve. If the pain worsens for no apparent reason, please contact the office. b. Intermittent leg pain may also be experienced and should not be concerned about unless it worsens for no apparent reason. If so, please contact the office. 5. We will provide appropriate medication within the normal guidelines of their prescribed use. We will also be very cautious and aware of potential abuse and extended duration of patients' medication needs. a. Pain medications are for your comfort and to assist with sleep and rest so that the tissue can heal. They are not provided in order to return to normal activity and should not be used through the day. To do so or worsening pain at night can result from ongoing tissue damage and development of tolerance to the prescribed medicine. 6. Please allow 2-3 days to process refills. Prescriptions will not be mailed but must be picked up at the office. FOLLOW UP VISIT: Keep your scheduled follow-up appointment. Any questions, please call the office at . Pending Studies at Discharge: No Stand-Alone Forms: My [employer], Smoking Cessation Medications and DC Order Prescriptions: New tramadol 50 mg tablet 50 mg PO Q6H PRN (Reason: pain, moderate) Qty: 30 RF: 0 Continued glipizide 10 mg tablet extended release 24hr 10 mg PO QAM Qty: 30 RF: 11 fenofibrate 160 mg tablet 160 mg PO QAM Qty: 30 RF: 11 hydrochlorothiazide 25 mg tablet 25 mg PO QAM Qty: 30 RF: 11 omeprazole 40 mg capsule,delayed release(DR/EC) 40 mg PO QAM Qty: 30 RF: 11 aspirin 81 mg tablet,delayed release (DR/EC) 81 mg PO QAM RF: 0 lidocaine [Salonpas (lidocaine)] 4 % adhesive patch,medicated 1 patch topical DAILY PRN (Reason: pain) Qty: 30 RF: 5 labetalol 100 mg tablet 150 mg PO BID Qty: 90 RF: 11 docusate sodium [Colace] 100 mg capsule 100 mg PO BID PRN (Reason: constipation) Qty: 60 RF: 5 magnesium hydroxide [Milk of Magnesia] 400 mg/5 mL suspension 30 ml PO DAILY PRN (Reason: constipation) Qty: 355 RF: 11 tramadol 50 mg tablet 50 mg PO Q8H PRN (Reason: pain) Qty: 45 RF: 0 empagliflozin [Jardiance] 10 mg tablet 20 mg PO DAILY RF: 0 Jardiance 10 mg tablet 10 mg PO DAILY Qty: 30 RF: 5 metformin 1,000 mg tablet 1,000 mg PO DAILY Qty: 30 RF: 11 (DME) blood-glucose meter [[facility]2 Meter] [facility] See Dose Instructions .ROUTE .MEDSUPPLY Qty: 1 RF: 0 (DME) lancets [OneTouch UltraSoft Lancets] [facility] See Dose Instructions .ROUTE .MEDSUPPLY Qty: 100 RF: 5 (DME) OneTouch Ultra Blue Test Strip strip See Dose Instructions .ROUTE .MEDSUPPLY Qty: 100 RF: 5 lisinopril 40 mg tablet 40 mg PO QAM Qty: 30 RF: 5 Centrum Silver 0.4-300-250 mg-mcg-mcg Tablet 1 tab PO QAM RF: 0 polyethylene glycol 3350 [Miralax] 17 gram Powder In Packet 17 g PO QAM RF: 0 spironolactone 25 mg tablet 25 mg PO QAM RF: 0 amlodipine 10 mg tablet 10 mg PO QAM RF: 0 simvastatin 20 mg tablet 20 mg PO QAM RF: 0 Discontinued meloxicam 7.5 mg tablet 7.5 mg PO DAILY Qty: 30 RF: 5 Discharge Orders: Discharge Order (Routine); Ordered 09/11/21 Ordered By: Ambrose Mina Admission Data Admit Date/Time: 09/09/21 15:12 Attending Provider: Ambrose Mina Admit Provider: Ambrose Mina Primary Care Provider: Adams Key Other Providers: Paddy Ambrose
== END 2021-09-11 14:02 | disposition home or self-care (01) | DRG 454 ==
LOC: ASU 09:02 → 3E 09:02

== ENCOUNTER 2025-01-22 12:59 | Inpatient (IN) ==
--- NOTE | 2025-01-22 13:11 | Emergency Department Note ---
Impression & Plan Elevated troponin Admission ED Provider Note HPI: History obtained from patient and bedside RN. The patient is a 84-year-old gentleman with history of cognitive impairment, who presents the emergency department with chief complaint chest pain. Patient states that he had some chest pain earlier this morning that lasted about 30 minutes. Patient describes the chest pain as a "tearing" type sensation. On arrival here to the ED the patient is hemodynamically stable, he states his chest pain is now gone on my initial evaluation. ROS: - Per HPI Differential Diagnosis: Acute coronary syndrome, aortic dissection, pulmonary embolism, GERD, esophagitis, amongst other potential pathologies. *Outpatient medications and allergy history reviewed. PE: General: Alert, frail-appearing, no acute distress HEENT: Normocephalic, trachea midline Eyes: Extraocular eye movement is intact, no scleral erythema Pulmonary: Clear to auscultation bilaterally, no wheezing Cardio: Regular rate and rhythm GI: Abdomen is soft to palpation : No suprapubic tenderness MSK: No evidence of trauma or malformation of the extremities, no edema Skin: No evidence of rash Neuro: Alert, no focal deficits Psychiatric: Cooperative INDEPENDENT INTERPRETATIONS: residential solar sales consultant: (As interpreted by myself): - An order was placed for continuous cardiac monitoring - Patient was noted to be in sinus rhythm with a rate of 90 EKG: (As interpreted by myself): Rate: 94 Rhythm: Normal sinus rhythm Intervals: Within normal limits ST changes: No ST elevation Time: 1304 Chest x-ray: (As interpreted by myself): No acute disease Interventions provided in ED: - IV fluid bolus Medical Decision Making: IV was established and lab work obtained. Lab work shows no leukocytosis, hemoglobin is 13.4, platelet count is normal, CMP does not show any evidence of any critical findings. Troponin did return elevated at 167, patient is chest pain-free on my evaluation here in the ED. His EKG does not show any evidence of any acute ischemic changes per my interpretation. Chest x-ray does not show any evidence of acute disease. Given the description of the patient's pain, CT angiography of the chest was obtained to rule out aortic dissection, I was informed by the interpreting radiologist (Dr. Julio) via [place] text that the patient does have multiple pulmonary emboli. Given this, heparin drip was ordered, I did discuss this with the patient and his son at the bedside and they are in agreement for admission. [facility] hospitalist service was consulted for admission. The patient's presentation was discussed with Dr. Grover. He requested hold on heparin drip and he will start the patient on Lovenox. This was discussed with the RN and therefore heparin drip was not initiated. Patient remains hemodynamically stable on the monitor on my reevaluation and he is chest pain-free. Consultants/Discussions held with other healthcare providers: - Hospitalist, Dr. Grover Disposition discussion held by myself with: - Patient and patient's son at the bedside Diagnosis: 1. Chest pain, acute 2. Elevated troponin, acute 3. Pulmonary embolism, acute Disposition: Admission Ric Bergman DO Emergency Medicine Past Med/Surg History Problem List (Updated 01/22/25 @ 15:25 by Ric Bergman DO) Elevated troponin (Acute) Medication noncompliance due to cognitive impairment Thyroid nodule Depression Abdominal pain Urinary symptom or sign Infected sebaceous cyst Diabetic neuropathy Chest pain Memory impairment History of removal of cyst (06/10/22) Excision of Soft Tissue Cyst x 3; excision of lipoma; of the Chest and Back(Not Applicable) - Julián Greco DO Lipoma (Chronic) Nocturia (Chronic) Esophageal reflux (Chronic) Post herpetic neuralgia Vitamin D deficiency Orbital edema 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 Enlarged prostate without lower urinary tract symptoms (luts) Obesity, diabetes, and hypertension syndrome Anxiety Headache Arthritis of both hands Chronic radicular low back pain Right hip pain Myofascial pain Neurogenic claudication due to lumbar spinal stenosis Delirium Orthostasis Sebaceous cyst Spinal stenosis of lumbar region Lumbar radiculopathy, right Medical History (Updated 01/22/25 @ 15:25 by Ric Bergman DO) LLQ abdominal pain Former smoker Diarrhea Cataract, right Somatic dysfunction cervical region, lower extremities, lumbar region, pelvic region, rib, thoracic region Osteoarthritis Diverticulosis Surgical History (Updated 12/26/24 @ 12:41 by Adams Key DO) Hx of cataract surgery 2023 B/L cataract Sx. Dr Kelley Hx of colonoscopy History of back surgery 09/2021, [place] History of esophagogastroduodenoscopy (EGD) History of total left knee replacement (TKR) revision History of total right knee replacement (TKR) + revisions History of tooth extraction Family History Mother Family history of diabetes mellitus Other No family history of adverse response to anesthesia Denies family history of Ovarian cancer Prostate cancer Myocardial infarction Breast cancer Colorectal cancer Social History Smoking Status: Never smoker Tobacco Type: Cigarettes Age Started Using Tobacco: 18; Age Quit Using Tobacco: 40; packs per day: 1; Second Hand Exposure: Yes ( smoked); Do You Dip or Chew Tobacco: No; Hx Alcohol Use: No (hx-long time ago, not anymore) Hx Substance Use: No Preferred Language: Syriac Communication Ability: Effective Visual Impairment: No Limitations Hearing Ability: Normal Coarse Wire Drawer Required: No Beliefs That Will Affect Care: None marital status: / Current Living Situation: Alone current occupational status: retired How many Children do You have: 3 Feels Safe at Home: Yes Childhood Exposure to Second-Hand Smoke: No Diet: regular caffeine: Yes during the past year weight has: remained stable Dental Care, Regularly: No Physical Activity Frequency: 3-4 Times per Week Seatbelt Use: always Sunscreen Use: No Do you think of yourself as: straight/heterosexual Sexual Activity: has been sexually active, but not for at least 12 months Gender Identity: Male Assistive Devices: Denture - Upper and Glasses Allergies Allergies Allergy/AdvReac Type Severity Reaction Status Date / Time codeine AdvReac Mild Severe N/V Verified 12/26/24 12:14 donepezil AdvReac Mild Dizziness Verified 12/26/24 12:14 morphine AdvReac Mild Hallucinati Verified 12/26/24 12:14 ons rizatriptan AdvReac Mild Nausea Verified 12/26/24 12:14 sulfamethoxazole AdvReac Mild Abdominal Verified 12/26/24 12:14 [From Bactrim] Pain trimethoprim [From Bactrim] AdvReac Mild Abdominal Verified 12/26/24 12:14 Pain Home Meds Home Medications Medication Instructions Recorded Confirmed aspirin 81 mg tablet,delayed 81 mg PO QAM 04/08/19 01/22/25 release tywhxhsn-mnt-xjbfo acid 0.4 1 tab PO QAM 06/21/19 01/22/25 mg-lycopene 300 mcg-lutein 250 mcg tablet (Centrum Silver) Previous Rx's Medication Instructions Recorded blood sugar diagnostic (OneTouch #100 ea 04/10/19 Ultra Blue Test Strip) blood-glucose meter (OneTouch #1 ea 04/10/19 Ultra2 Meter) lancets (OneTouch UltraSoft #100 ea 04/10/19 Lancets) blood-glucose sensor (Dexcom G7 #1 ea 07/27/23 Sensor device) blood-glucose,meter installer and remover,cont #1 ea 07/27/23 (Dexcom G7 Humanities Coordinator) simvastatin 20 mg tablet 20 mg PO QAM #90 tabs 09/14/23 spironolactone 25 mg tablet 25 mg PO QAM #90 tabs 11/10/23 lidocaine 4 % topical patch 1 patch topical BID PRN pain #60 ea 02/03/24 (Salonpas (lidocaine)) fenofibrate 160 mg tablet 160 mg PO QAM #90 tabs 05/24/24 omeprazole 40 mg capsule,delayed 40 mg PO QAM #90 caps 05/24/24 release metformin 1,000 mg tablet 1,000 mg PO QAM #90 tabs 08/20/24 lisinopril 20 mg tablet 20 mg PO DAILY #90 tabs 11/30/24 escitalopram oxalate 10 mg tablet 10 mg PO DAILY #90 tabs 12/28/24 amlodipine 5 mg tablet 5 mg PO DAILY #90 tabs 01/01/25 Results & Data (ED) Vital Signs Vital Signs - 24 hr 01/22/25 13:14 01/22/25 13:26 01/22/25 13:32 Temperature 37.0 C Temperature Source Oral Pulse Rate 95 H 86 84 Pulse Rate [Apical] Pulse Rate from SpO2 Sensor Respiratory Rate 18 19 Respiratory Effort / Characteristics Non-Labored Respiratory Depth Normal Respiratory Pattern Regular Blood Pressure 110/60 Blood Pressure [Right Arm] Blood Pressure Mean 76 Blood Pressure Mean [Right Arm] Blood Pressure Position Sitting Blood Pressure Position [Right Arm] Pulse Oximetry 96 98 Oxygen Delivery Method Room Air Room Air Sepsis Recent Fever Within 48 Hours No Sepsis New/Unexplained Change in Mental Status No Sepsis Action Taken by Nursing No Action Required 01/22/25 13:57 01/22/25 15:00 01/22/25 15:14 Temperature Temperature Source Pulse Rate 88 Pulse Rate [Apical] 86 Pulse Rate from SpO2 Sensor 88 Respiratory Rate 14 16 Respiratory Effort / Characteristics Non-Labored Spontaneous Respiratory Depth Normal Respiratory Pattern Regular Blood Pressure 126/75 Blood Pressure [Right Arm] 143/77 H Blood Pressure Mean 92 Blood Pressure Mean [Right Arm] 99 Blood Pressure Position Blood Pressure Position [Right Arm] Semi-fowlers Pulse Oximetry 98 97 97 Oxygen Delivery Method Room Air Room Air Sepsis Recent Fever Within 48 Hours Sepsis New/Unexplained Change in Mental Status Sepsis Action Taken by Nursing Laboratory Data 01/22/25 13:01 01/22/25 13:01 Lab Results 01/22/25 Range/Units 13:01 WBC 7.61 (4.8-10.8) K/ul RBC 4.62 L (4.70-6.10) M/uL Hgb 13.4 L (14.0-18.0) g/dl Hct 40.6 L (42.0-52.0) % MCV 87.9 (80.0-100.0) fL MCH 29.0 (25.0-34.0) pg MCHC 33.0 (32.0-36.0) g/dL RDW Std Deviation 43.7 (36.4-46.3) fL RDW Coeff of [place]ino 13.5 (11.5-14.5) % Plt Count 277 (130-400) K/uL MPV 10.5 (9.4-12.4) fL Immature Gran % (Auto) 0.3 % Neut % (Auto) 76.3 % Lymph % (Auto) 14.8 % [place] % (Auto) 7.8 % Eos % (Auto) 0.5 % Baso % (Auto) 0.3 % Neut # (Auto) 5.81 (1.40-6.50) K/uL Lymph # (Auto) 1.13 L (1.20-3.40) K/uL [place] # (Auto) 0.59 (0.11-0.59) K/uL Eos # (Auto) 0.04 (0.00-0.50) K/uL Baso # (Auto) 0.02 (0.00-0.20) K/uL Immature Gran # (Auto) 0.02 (0.01-0.20) K/uL PT 11.6 (9.0-12.0) Seconds INR 1.1 (0.9-1.1) Sodium 136 (136-145) mmol/L Potassium 4.1 (3.5-5.1) mmol/L Chloride 102 (98-107) mmol/L Carbon Dioxide 26 (21-32) mmol/L Anion Gap 8 (3-11) BUN 41 H (6-23) mg/dl Creatinine 1.29 (0.6-1.4) mg/dl Est Cr Clr Drug Dosing 45.6 ml/min eGFR 55.36 BUN/Creatinine Ratio 31.8 H (10-20) Glucose 181 H (70-99(Fasting)) mg/dl Calcium 9.6 (8.6-10.3) mg/dl Total Bilirubin 0.6 (0.2-1.0) mg/dl AST 12 L (13-39) U/L ALT 8 (7-52) U/L Alkaline Phosphatase 56 (34-104) U/L Troponin I High Sens 167.8 H* (0-20) pg/ml Total Protein 7.7 (6.0-8.3) gm/dl Albumin 4.0 (3.4-5.0) gm/dl Globulin 3.7 (2.5-4.0) gm/dl Albumin/Globulin Ratio 1.1 (0.9-2) Lipase 38 (11-82) U/L Administered Medications Discontinued Medications Aspirin (Aspirin Chew 324 Mg) 324 mg PO NOW STA Stop: 01/22/25 14:50 Last Admin: 01/22/25 15:13 Dose: Not Given Documented By: TRA Heparin Sodium/Dextrose (Heparin Iv Adult Wt-Based Standard W/ Initial Bolus Protocol) 1 each IV NOW STA; Protocol Stop: 01/22/25 15:26 Last Admin: 01/22/25 15:37 Dose: Not Given Documented By: TRA Sodium Chloride (Nss) 500 mls @ 999 mls/hr IV .Q31M STA Stop: 01/22/25 13:36 Last Infusion: 01/22/25 15:13 Dose: Infused Documented By: Admin: 01/22/25 13:48 Dose: 999 mls/hr Documented By: gal Ioversol (Optiray 320 125ml) 118 ml IV ONCE ONE Stop: 01/22/25 14:32 Last Admin: 01/22/25 14:33 Dose: 118 ml Documented By: PARTH Imaging Data Radiologist's Impression: Chest X-Ray 01/22/25 13:06 XR chest 1V portable CLINICAL HISTORY: Chest pain, nonspecific COMPARISON STUDY: Chest radiograph and chest CT November 11, 2024. FINDINGS: Lung volumes are normal. Lungs are clear. There is no pneumothorax or pleural effusion. Cardiac size is normal. Mediastinal contours are normal. There is no evidence for pulmonary edema. IMPRESSION: No acute cardiopulmonary findings. ACT 112: Negative or not required by law. Electronically signed by: Homero Julio M.D. 01/22/2025 1:33 PM Chest CTA 01/22/25 13:11 CT ANGIOGRAM OF THE CHEST COMBO CLINICAL HISTORY: Chest and back pain. Evaluate for aortic dissection. COMPARISON STUDY: Chest CT November 11, 2024. Chest radiograph performed earlier today. TECHNIQUE: Before and following the IV administration of 118 cc of Optiray 320, CT angiogram of the chest was performed from the thoracic inlet to the upper abdomen utilizing the dissection protocol. Images are reviewed in the axial, sagittal, and coronal planes. 3-D MIPS images are created and assessed. IV contrast was administered without complication. A dose lowering technique was utilized adhering to the principles of ALARA. CT DOSE: 1690.71 mGy.cm FINDINGS: Mild dilatation of the ascending aorta measuring 4 cm at the level the main pulmonary artery is unchanged as prior exam. There is no thoracic aortic dissection or intramural hematoma. Mild cardiomegaly and extensive coronary artery calcification are present. Of note, there are are extensive bilateral pulmonary emboli. There are multiple lobar and segmental pulmonary emboli throughout the lungs. There is no central pulmonary embolus. There is no CT evidence for right heart strain. There is no definite pulmonary infarct. No suspicious pulmonary nodules are present. A gallstone within the gallbladder is incidentally noted. There is a left upper pole renal cyst. Mild loss of height of the superior endplate of L1 is new since CT of November 11, 2024. IMPRESSION: 1. Extensive bilateral pulmonary emboli. No central pulmonary embolus. No CT evidence for right heart strain. 2. No thoracic aortic dissection. Mild cardiomegaly. Extensive coronary calcification. 3. Mild L1 compression fracture which is age indeterminate but new since CT of November 11, 2024. ACT 112: Negative or not required by law. Electronically signed by: Homero Julio M.D. 01/22/2025 3:30 PM Discharge Plan Visit Data Chief Complaint: Chest Pain Stated Complaint: CHEST PAIN ED Provider: Ric Bergman Discharge Problem: Elevated troponin Patient Disposition: Admitted As Inpatient Condition: Fair Forms Stand Alone Forms: My [facility] [place] Prescriptions Prescriptions: No Action simvastatin 20 mg tablet 20 mg PO QAM Qty: 90 3RF spironolactone 25 mg tablet 25 mg PO QAM Qty: 90 3RF fenofibrate 160 mg tablet 160 mg PO QAM Qty: 90 3RF omeprazole 40 mg capsule,delayed release(DR/EC) 40 mg PO QAM Qty: 90 3RF metformin 1,000 mg tablet 1,000 mg PO QAM Qty: 90 3RF escitalopram oxalate 10 mg tablet 10 mg PO DAILY Qty: 90 3RF amlodipine 5 mg tablet 5 mg PO DAILY Qty: 90 3RF aspirin 81 mg tablet,delayed release (DR/EC) 81 mg PO QAM (DME) blood-glucose meter [OneTouch Ultra2 Meter] misc See Dose Instructions .ROUTE .MEDSUPPLY Qty: 1 0RF Dose Instruction: As directed Rx Instructions: Test blood sugar once daily. Dx: E11.65 (May substitute meter that is covered by insurance) (DME) lancets [OneTouch UltraSoft Lancets] misc See Dose Instructions .ROUTE .MEDSUPPLY Qty: 100 5RF Dose Instruction: As directed Rx Instructions: Test blood sugar once daily. Dx: E11.65 (DME) OneTouch Ultra Blue Test Strip strip See Dose Instructions .ROUTE .MEDSUPPLY Qty: 100 5RF Dose Instruction: As directed Rx Instructions: Test blood sugar once daily. Dx: E11.65 (DME) Dexcom G7 Sensor Device See Rx Instructions .Route Qty: 1 3RF Rx Instructions: As directed. 3 month supply (DME) Dexcom G7 Humanities Coordinator Misc See Rx Instructions .Route Qty: 1 0RF Rx Instructions: As directed lidocaine [Salonpas (lidocaine)] 4 % adhesive patch,medicated 1 patch topical BID PRN (Reason: pain) Qty: 60 5RF lisinopril 20 mg tablet 20 mg PO DAILY Qty: 90 3RF Centrum Silver 0.4-300-250 mg-mcg-mcg Tablet 1 tab PO QAM Referrals Referrals: Adams Key DO [Primary Care Provider] -
[2025-01-22 13:31] LABS: Hematocrit (blood only) 40.6 % (42.0-52.0); Hemoglobin 13.4 g/dl (14.0-18.0); Immature Granulocytes # (auto) 0.02 K/uL (0.01-0.20); Immature Granulocytes % (auto) 0.3 %; Mean Corpuscular Hemoglobin 29.0 pg (25.0-34.0); Mean Corpuscular Volume 87.9 fL (80.0-100.0); Platelet Count 277 K/uL (130-400); RDW Standard Deviation 43.7 fL (36.4-46.3); Red Blood Count 4.62 M/uL (4.70-6.10); White Blood Count 7.61 K/ul (4.8-10.8)
--- NOTE | 2025-01-22 13:34 | XRay Report ---
XR chest 1V portable CLINICAL HISTORY: Chest pain, nonspecific COMPARISON STUDY: Chest radiograph and chest CT November 11, 2024. FINDINGS: Lung volumes are normal. Lungs are clear. There is no pneumothorax or pleural effusion. Car diac size is normal. Mediastinal contours are normal. There is no evidence for pulmonary edema. IMPRESSION: No acute cardiopulmonary findings. ACT 112: Negative or not required by law. Electronically signed by: Homero Julio M.D. 01/22/2025 1:33 PM
[2025-01-22] MEDS: SODIUM CHLORIDE 0.9% 500 ML IV STA (13:48)
[2025-01-22 13:50] LABS: Alanine Aminotransferase 8.0 U/L (7-52); Albumin Globulin Ratio 1.1 (0.9-2); Alkaline Phosphatase 56.0 U/L (34-104); Anion Gap 8.0 (3-11); Bilirubin,Total 0.6 mg/dl (0.2-1.0); Blood Urea Nitrogen 41.0 mg/dl (6-23); Calcium 9.6 mg/dl (8.6-10.3); Carbon Dioxide 26.0 mmol/L (21-32); Chloride 102.0 mmol/L (98-107); Creatinine Clr Calc Pharmacy 45.6 ml/min; Globulin 3.7 gm/dl (2.5-4.0); Glucose 181.0 mg/dl (70-99(Fasting)); Lipase 38.0 U/L (11-82); Potassium 4.1 mmol/L (3.5-5.1); Sodium 136.0 mmol/L (136-145); Total Protein 7.7 gm/dl (6.0-8.3)
[2025-01-22 13:59] LABS: INR 1.1 (0.9-1.1); Prothrombin Time 11.6 Seconds (9.0-12.0)
[2025-01-22] MEDS: OPTIRAY 320 125ml IV ONE (14:33)
[2025-01-22] MEDS: ASPIRIN CHEW 324 MG PO STA (15:13)
--- NOTE | 2025-01-22 15:32 | CT Scan Report ---
CT ANGIOGRAM OF THE CHEST COMBO CLINICAL HISTORY: Chest and back pain. Evaluate for aortic dissection. COMPARISON STUDY: Chest CT November 11, 2024. Chest radiograph performed earlier today. TECHNIQUE: Before and following the IV administration of 118 cc of Optiray 320, CT angiogram of the c hest was performed from the thoracic inlet to the upper abdomen utilizing the dissection protocol. Im ages are reviewed in the axial, sagittal, and coronal planes. 3-D MIPS images are created and assesse d. IV contrast was administered without complication. A dose lowering technique was utilized adherin g to the principles of ALARA. CT DOSE: 1690.71 mGy.cm FINDINGS: Mild dilatation of the ascending aorta measuring 4 cm at the level the main pulmonary arter y is unchanged as prior exam. There is no thoracic aortic dissection or intramural hematoma. Mild car diomegaly and extensive coronary artery calcification are present. Of note, there are are extensive b ilateral pulmonary emboli. There are multiple lobar and segmental pulmonary emboli throughout the luis gs. There is no central pulmonary embolus. There is no CT evidence for right heart strain. There is n o definite pulmonary infarct. No suspicious pulmonary nodules are present. A gallstone within the gal lbladder is incidentally noted. There is a left upper pole renal cyst. Mild loss of height of the sup erior endplate of L1 is new since CT of November 11, 2024. IMPRESSION: 1. Extensive bilateral pulmonary emboli. No central pulmonary embolus. No CT evidence for right heart strain. 2. No thoracic aortic dissection. Mild cardiomegaly. Extensive coronary calcification. 3. Mild L1 compression fracture which is age indeterminate but new since CT of November 11, 2024. ACT 112: Negative or not required by law. Electronically signed by: Homero Julio M.D. 01/22/2025 3:30 PM
[2025-01-22] MEDS: Heparin IV Adult Wt-Based Standard w/ INITIAL Bolus Protocol IV STA (15:37)
[2025-01-22] MEDS ORDERED: ENOXAPARIN 1 MG/KG SQ ONE (15:44)
[2025-01-22] MEDS ORDERED: HEPARIN 25000 UNIT/500 ML D5W 25,000 UNITS/500 ML BAG IV SCH (15:45)
[2025-01-22] MEDS ORDERED: ENOXAPARIN 100 MG/1ML SYR SQ ONE (16:00)
--- NOTE | 2025-01-22 16:34 | History & Physical Report ---
Date of Service January 22, 2025 Assessment & Plan (1) Pulmonary embolism, bilateral: (2) Type 2 myocardial infarction: (3) Type 2 diabetes mellitus with peripheral neuropathy: (4) Type 2 diabetes mellitus with hyperglycemia: Plan In summary this is an 84-year-old male admitted for multiple segmental and lobar pulmonary emboli bilaterally with a superimposed type II myocardial infarction #Bilateral pulmonary emboli without cor pulmonale // Type II myocardial infar ction patient's presentation is subacute, given the steady progression of fatigue over the past several weeks, lack of acute onset symptomatology considering the burden of emboli present, and compensated hemodynamics with a unremarkable shock index; noted that there is an associated troponin rise, though suspect this is likely consequential of the prolonged compensatory cardiac output needed in the setting of the subacute development of this condition -Vital signs every shift -Discussion with case management regarding anticoagulation cost at discharge -Start enoxaparin 85 mg every 12 hours - obtain EKG as needed for recurrent episodes of chest pain, or anginal equivalent Follow daily coagulation panel, creatinine Obtain continued troponin trend until peak measure #Type II diabetes mellitus with multiple complications chronic condition; prandial and bedtime bolus dosing during hospitalization; pharmacy consulted for additional management during hospitalization Admission and Anticipated Discharge Date Admission Date: 01/22/2025 Anticipated date of discharge: 01/24/25 History of Present Illness Chief Complaint: Progressive fatigue, chest discomfort Primary Care Provider: Adams Key DO Mr. Silva is an 84-year-old male whose active medical conditions include type 2 diabetes mellitus with peripheral neuropathy, hyperlipidemia, hypertension among other chronic medical conditions who presented to [facility] on 01/22 accompanied by his son due to subacute progressive fatigue with new symptoms of nausea and and a "uneasiness" in his chest that began the morning of presentation. The patient's son and the patient recount over the past 4 to 6 weeks they have had a progressive decline in endurance doing activities of daily living. This is not specifically associated with shortness of breath or dyspnea on exertion nor associated chest discomfort, just a loss of endurance. On the morning of their presentation the patient woke with a sense of unease in their chest, not specifically described as pain nor achiness, associated with nausea. Son had checked on him today as they had a scheduled outpatient appointment but brought the patient to the emergency department for further evaluation. Allergies Allergy/AdvReac Type Severity Reaction Status Date / Time codeine AdvReac Mild Severe N/V Verified 12/26/24 12:14 donepezil AdvReac Mild Dizziness Verified 12/26/24 12:14 morphine AdvReac Mild Hallucinati Verified 12/26/24 12:14 ons rizatriptan AdvReac Mild Nausea Verified 12/26/24 12:14 sulfamethoxazole AdvReac Mild Abdominal Verified 12/26/24 12:14 [From Bactrim] Pain trimethoprim [From Bactrim] AdvReac Mild Abdominal Verified 12/26/24 12:14 Pain Home Medications Medication Instructions Recorded Confirmed Type aspirin 81 mg tablet,delayed 81 mg PO QAM 04/08/19 01/22/25 History release blood sugar diagnostic (OneTouch #100 ea 04/10/19 01/22/25 Rx Ultra Blue Test Strip) blood-glucose meter (OneTouch #1 ea 04/10/19 01/22/25 Rx Ultra2 Meter) lancets (GREETouch UltraSoft #100 ea 04/10/19 01/22/25 Rx Lancets) ehzaudba-scg-ptgcu acid 0.4 1 tab PO QAM 06/21/19 01/22/25 History mg-lycopene 300 mcg-lutein 250 mcg tablet (Centrum Silver) blood-glucose sensor (Dexcom G7 #1 ea 07/27/23 01/22/25 Rx Sensor device) blood-glucose,senior oracle database developer,cont #1 ea 07/27/23 01/22/25 Rx (Dexcom G7 Field Radio Operator) simvastatin 20 mg tablet 20 mg PO QAM #90 tabs 09/14/23 01/22/25 Rx spironolactone 25 mg tablet 25 mg PO QAM #90 tabs 11/10/23 01/22/25 Rx lidocaine 4 % topical patch 1 patch topical BID PRN pain #60 ea 02/03/24 01/22/25 Rx (Salonpas (lidocaine)) fenofibrate 160 mg tablet 160 mg PO QAM #90 tabs 05/24/24 01/22/25 Rx omeprazole 40 mg capsule,delayed 40 mg PO QAM #90 caps 05/24/24 01/22/25 Rx release metformin 1,000 mg tablet 1,000 mg PO QAM #90 tabs 08/20/24 01/22/25 Rx lisinopril 20 mg tablet 20 mg PO DAILY #90 tabs 11/30/24 01/22/25 Rx escitalopram oxalate 10 mg tablet 10 mg PO DAILY #90 tabs 12/28/24 01/22/25 Rx amlodipine 5 mg tablet 5 mg PO DAILY #90 tabs 01/01/25 01/22/25 Rx Past Med/Surg History Problem List (Updated 01/22/25 @ 16:31 by Robert Grover DO) Type 2 diabetes mellitus with peripheral neuropathy (Chronic) Type 2 diabetes mellitus with hyperglycemia (Chronic) Type 2 myocardial infarction (Acute) Pulmonary embolism, bilateral Medication noncompliance due to cognitive impairment (Chronic) Thyroid nodule (Chronic) Depression (Chronic) Nocturia (Chronic) Esophageal reflux (Chronic) Post herpetic neuralgia Vitamin D deficiency Orbital edema 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 Enlarged prostate without lower urinary tract symptoms (luts) Obesity, diabetes, and hypertension syndrome Anxiety Headache Arthritis of both hands Chronic radicular low back pain Right hip pain Myofascial pain Neurogenic claudication due to lumbar spinal stenosis Delirium Orthostasis Sebaceous cyst Spinal stenosis of lumbar region Lumbar radiculopathy, right Medical History Lipoma LLQ abdominal pain Former smoker Diarrhea Cataract, right Somatic dysfunction cervical region, lower extremities, lumbar region, pelvic region, rib, thoracic region Osteoarthritis Diverticulosis Surgical History History of removal of cyst (06/10/22) Excision of Soft Tissue Cyst x 3; excision of lipoma; of the Chest and Back(Not Applicable) - Julián Greco DO Hx of cataract surgery 2023 B/L cataract Sx. Dr Kelley Hx of colonoscopy History of back surgery 09/2021, [place] History of esophagogastroduodenoscopy (EGD) History of total left knee replacement (TKR) revision History of total right knee replacement (TKR) + revisions History of tooth extraction Family History Mother Family history of diabetes mellitus Other No family history of adverse response to anesthesia Denies family history of Ovarian cancer Prostate cancer Myocardial infarction Breast cancer Colorectal cancer Social History Smoking Status: Never smoker Tobacco Type: Cigarettes Age Started Using Tobacco: 18; Age Quit Using Tobacco: 40; packs per day: 1; Second Hand Exposure: Yes ( smoked); Do You Dip or Chew Tobacco: No; Hx Alcohol Use: No (hx-long time ago, not anymore) Hx Substance Use: No Preferred Language: Burundian Communication Ability: Effective Visual Impairment: No Limitations Hearing Ability: Normal Crossing Flagman Required: No Beliefs That Will Affect Care: None marital status: / Current Living Situation: Alone current occupational status: retired How many Children do You have: 3 Feels Safe at Home: Yes Childhood Exposure to Second-Hand Smoke: No Diet: regular caffeine: Yes during the past year weight has: remained stable Dental Care, Regularly: No Physical Activity Frequency: 3-4 Times per Week Seatbelt Use: always Sunscreen Use: No Do you think of yourself as: straight/heterosexual Sexual Activity: has been sexually active, but not for at least 12 months Gender Identity: Male Assistive Devices: Denture - Upper and Glasses Review of Systems Review of Systems: Remaining review of constitutional, pulmonary, cardiovascular, gastrointestinal, genitourinary, musculoskeletal, neurologic, and integumentary systems was unremarkable except for pertinent positive and negative findings noted in the HPI above. Physical Exam Physical Exam: General: Elderly male in no acute distress Vital Signs: reviewed, normal HEENT: atraumatic and normocephalic; pupils equally round reactive to light; extraocular motion intact; moist mucous membranes Neck: no notable JVD at rest; no hepatojugular reflux noted Pulmonary: symmetric chest wall excursion, unrestricted; mild left anterior chest wall discomfort with deep inhalation primarily in the area of the nipple line; lungs are clear to auscultation bilaterally Cardiovascular: regular rate and rhythm without murmurs, rubs, or gallops; S1 and S2 normal; bilateral radial and posterior tibial pulse 2+; no lower extremity edema Gastrointestinal: soft, nontender throughout Neurologic: CN II-XII grossly intact; no discernible focal weakness nor paresthesias Results & Data Results & Data Vital Signs (Past 12 Hours) Vital Signs Temp Pulse Pulse Resp BP BP Pulse Ox 01/22/25 15:14 97 01/22/25 15:00 86 16 143/77 H 97 01/22/25 13:57 88 14 126/75 98 01/22/25 13:32 84 19 98 01/22/25 13:26 86 01/22/25 13:14 37.0 C 95 H 18 110/60 96 O2 Del Method 01/22/25 15:14 Room Air 01/22/25 15:00 Room Air 01/22/25 13:57 01/22/25 13:32 Room Air 01/22/25 13:26 01/22/25 13:14 Room Air Laboratory Results hemoglobin 13.4; coagulation panel normal; normal transaminase measures; troponin trend 167.8, 288.3 Diagnostic Findings CTA chest reveals multiple lobar and segmental pulmonary emboli bilaterally without evidence of right heart strain ECG Additional Comments: EKG reveals a regular rhythm, leftward axis, appropriate R wave transition in the precordial leads; no ST changes nor other stigmata of acute ischemia Code Status & VTE Plan VTE Prophylaxis Plan VTE Prophylaxis will be ordered: No Reason for no VTE drug order: Contraindicated PG Care Time/CCT Total # of Minutes Spent Total Time Spent with Patient: Total time spent is greater than 50% in coordination of care (as documented) at patient's floor/unit and/or counseling patient: Coding Level of Care Code 16661 INT INP/OBS CARE 375MIN Diagnoses Pulmonary embolism, bilateral I26.99 Type 2 myocardial infarction I21.A1 Type 2 diabetes mellitus with peripheral neuropathy E11.42 Type 2 diabetes mellitus with hyperglycemia, without long-term current use of insulin E11.65 Diabetes mellitus skilled nursing insulin use: without terminal system operator use (4) Type 2 diabetes mellitus with hyperglycemia Diabetes mellitus skilled nursing insulin use: without skilled nursing use Qualified Code(s): E11.65 - Type 2 diabetes mellitus with hyperglycemia
[2025-01-22] MEDS: HEPARIN SOD (PORCINE) 1000 UNIT/ML IV ONE (16:52)
[2025-01-22] MEDS ORDERED: CARBOHYDRATES FOR HYPOGLYCEMIA PO PRN (17:40)
[2025-01-22] MEDS ORDERED: DEXTROSE 50% 50 ML SYRINGE IV PRN (17:40)
[2025-01-22] MEDS ORDERED: GLUCAGON FOR INJ 1 MG VIAL SQ PRN (17:40)
[2025-01-22] MEDS ORDERED: PHARMACY GLYCEMIC MGMT CONSULT PRN (17:40)
[2025-01-22] MEDS ORDERED: GLUCOSE 10 TAB/TUBE PO PRN (17:40)
[2025-01-22] MEDS ORDERED: GLUCOSE 40% GEL 15 GM TUBE PO PRN (17:40)
[2025-01-22] MEDS ORDERED: ENOXAPARIN 1 MG/KG SC SCH (17:40)
--- NOTE | 2025-01-22 18:24 | Pharmacy Report ---
Pharmacy Glycemic Short Note 2 - Date of Service January 22, 2025 - Glycemic Short BSG Results (Last 24 hours): 01/22/25 13:01 Glucose 181 H OUTPATIENT ANTIDIABETIC REGIMEN: * metformin 1000 mg PO qAM A1c = 6.5% (09/26/24) ASSESSMENT: * 84-year-old male with PMH of type 2 diabetes mellitus with peripheral neuropathy, hyperlipidemia, and hypertension admitted with b/l pulmonary emboli and type II myocardial infarction * Patient is well controlled on metformin at home. Will hold metformin, at least initially, for admission. Continue Novolog ACHS as ordered by Hospitalist. * Hold basal insulin until fasting BSG available. PLAN FOR INPATIENT GLYCEMIC CONTROL: * Hold outpatient oral diabetes medications * Basal insulin * none * Bolus insulin * NovoLog per scale ACHS or Q6hrs while NPO * Goal Range: Low 120 mg/dL - High 150 mg/dL * Correction Factor: 35 mg/dL/unit * Nutritional / Prandial insulin per carb ratio of 1 unit per 15 grams CHO consumed
[2025-01-22] MEDS: INSULIN ASPART PER UNIT CHARGE SC SCH (18:48)
[2025-01-22] MEDS: ENOXAPARIN 100 MG/1ML SYR SQ SCH (18:50)
[2025-01-23] MEDS: ASPIRIN 81 MG ECTAB PO SCH (07:26)
[2025-01-23] MEDS: CEROVITE ADV FORMULA TAB PO SCH (07:26)
[2025-01-23] MEDS: ESCITALOPRAM OXALATE 10 MG TAB PO SCH (07:26)
[2025-01-23] MEDS: SPIRONOLACTONE 25 MG TAB PO SCH (07:27)
[2025-01-23] MEDS: FENOFIBRATE NANOCRYSTALLIZED 145 MG TABLET PO SCH (07:27)
[2025-01-23] MEDS: SIMVASTATIN 20 MG TAB PO SCH (07:27)
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
--- NOTE | 2025-01-23 12:28 | Pharmacy Report ---
Pharmacy Glycemic Short Note 2 - Date of Service January 23, 2025 - Glycemic Short BSG Results (Last 24 hours): 01/22/25 01/22/25 01/22/25 13:01 18:47 20:45 Glucose 181 H POC Glucose 109 H 118 H 01/23/25 01/23/25 07:46 11:49 Glucose POC Glucose 118 H 114 H OUTPATIENT ANTIDIABETIC REGIMEN: * metformin 1000 mg PO qAM A1c = 6.5% (09/26/24) ASSESSMENT: 01/23: * Terrell has required no insulin thus far this admission. BSGs ranged from 109 - 118 mg/dL since the time of consultation. * Continue to hold basal insulin. Remove carb ratio. 01/22: * 84-year-old male with PMH of type 2 diabetes mellitus with peripheral neuropathy, hyperlipidemia, and hypertension admitted with b/l pulmonary emboli and type II myocardial infarction * Patient is well controlled on metformin at home. Will hold metformin, at least initially, for admission. Continue Novolog ACHS as ordered by Hospitalist. * Hold basal insulin until fasting BSG available. PLAN FOR INPATIENT GLYCEMIC CONTROL: * Hold outpatient oral diabetes medications * Basal insulin * none * Bolus insulin * NovoLog per scale ACHS or Q6hrs while NPO * Goal Range: Low 120 mg/dL - High 150 mg/dL * Correction Factor: 35 mg/dL/unit * Nutritional / Prandial insulin: none
[2025-01-23 14:02] LABS: Appearance Urine Clear (Clear); Bacteria Urine Automated None Seen (None Seen); Cast Urine Automated 0-2 /lpf (0-2); Epithelial Cell Urine Auto 0-2 /hpf (0-2); Glucose Urine UA Trace (Negative); RBC Urine Automated 0-2 /hpf (0-2); WBC Urine Automated 0-5 /hpf (0-5)
[2025-01-23] MEDS: RIVAROXABAN 15 MG TAB PO SCH (17:29)
[2025-01-24 06:38] LABS: Creatinine Clr Calc Pharmacy 48.2 ml/min
--- NOTE | 2025-01-24 11:12 | Pharmacy Report ---
Pharmacy Glycemic Sign Off Nt - Date of Service January 24, 2025 - Assessment & Plan ASSESSMENT: * Pharmacy was consulted by Dr. Grover on 01/22/25 for glycemic control and to write orders per [facility] inpatient glycemic control protocol. * No major changes made by pharmacy to antidiabetic regimen * Patient has received no insulin since admission with BSGs ranging from 109 - 118 mg/dL * Do not anticipate further changes in patient status that would quickly deteriorate glycemic control (i.e. patient to be NPO for upcoming procedure, steroids tapering, starting tube feedings, etc). PLAN FOR INPATIENT GLYCEMIC CONTROL: No changes needed to current regimen. * Continue NovoLog per scale ACHS/Q6hrs while NPO * Goal range = 120 - 150 mg/dl * CF = 35 mg/dl/unit * CR = none * Pharmacy is signing off of glycemic consult and will no longer be making adjustments to inpatient regimen. Please feel free to re-consult if needed. Thank you.
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
--- NOTE | 2025-01-24 16:41 | XCELERA ---
[id number]
[2025-01-24] MEDS: MELATONIN 3 MG TAB PO PRN (20:52)
[2025-01-25 07:05] LABS: Hematocrit (blood only) 37.7 % (42.0-52.0); Hemoglobin 12.8 g/dl (14.0-18.0); Mean Corpuscular Hemoglobin 29.4 pg (25.0-34.0); Mean Corpuscular Volume 86.5 fL (80.0-100.0); Platelet Count 280 K/uL (130-400); RDW Standard Deviation 41.3 fL (36.4-46.3); Red Blood Count 4.36 M/uL (4.70-6.10); White Blood Count 4.46 K/ul (4.8-10.8)
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
[2025-01-25] MEDS: TAMSULOSIN HCL 0.4 MG CAP PO SCH (10:06)
[2025-01-26 07:45] LABS: Creatinine Clr Calc Pharmacy 49.4 ml/min
[2025-01-26] MEDS: METOPROLOL SUCC 25MG EXT REL TAB PO SCH (08:37)
--- NOTE | 2025-01-26 09:45 | Electrocardiogram Report ---
Test Reason : Blood Pressure : */* mmHG Vent. Rate : 94 BPM Atrial Rate : 94 BPM P-R Int : 198 ms QRS Dur : 86 ms QT Int : 366 ms P-R-T Axes : 73 -11 -12 degrees QTcB Int : 457 ms Normal sinus rhythm Inferior infarct , age undetermined Abnormal ECG When compared with ECG of 11-Nov-2024 08:31, Inferior infarct is now Present Nonspecific T wave abnormality now evident in Inferior leads Confirmed by Jorge Tirado ([id number]) on 01/26/2025 9:45:23 AM Referred By: Confirmed By: Jorge Tirado
[2025-01-26] MEDS: LIDOCAINE 5% 1 PATCH TD SCH (15:49)
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
[2025-01-26] MEDS: REMOVE LIDODERM PATCH SCH (22:57)
[2025-01-27] MEDS: CYANOCOBALAMIN 1000 MCG/ML VIAL IM SCH (08:31)
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
[2025-01-27] MEDS ORDERED: PHA DELIRIUM CONSULT PRN (11:44)
[2025-01-27] MEDS: SODIUM CHLORIDE 0.9% 1,000 ML IV ONE (17:04)
[2025-01-28] MEDS ORDERED: ACETAMINOPHEN 325 MG TAB PO PRN (09:40)
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
[2025-01-29 08:27] LABS: Anion Gap 5.0 (3-11); Blood Urea Nitrogen 25.0 mg/dl (6-23); Calcium 9.3 mg/dl (8.6-10.3); Carbon Dioxide 26.0 mmol/L (21-32); Chloride 104.0 mmol/L (98-107); Creatinine Clr Calc Pharmacy 49.4 ml/min; Glucose 124.0 mg/dl (70-99(Fasting)); Potassium 4.2 mmol/L (3.5-5.1); Sodium 135.0 mmol/L (136-145)
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
--- NOTE | 2025-01-30 07:17 | Hospitalist Progress Note ---
Date of Service January 30, 2025 Assessment & Plan Admission and Anticipated Discharge Date Admission Date: January 22, 2025 Results & Data Results & Data Vital Signs (Past 12 Hours) Vital Signs Temp Resp Pulse Ox O2 Del Method O2 Del Method 01/30/25 00:00 95 Room Air 01/29/25 22:03 36.7 C 18 01/29/25 22:01 Room Air PG Care Time/CCT Total # of Minutes Spent Total Time Spent with Patient: Total time spent is greater than 50% in coordination of care (as documented) at patient's floor/unit and/or counseling patient: Coding
[2025-01-30 07:46] LABS: Hematocrit (blood only) 35.9 % (42.0-52.0); Hemoglobin 12.1 g/dl (14.0-18.0); Mean Corpuscular Hemoglobin 29.3 pg (25.0-34.0); Mean Corpuscular Volume 86.9 fL (80.0-100.0); Platelet Count 365 K/uL (130-400); RDW Standard Deviation 43.1 fL (36.4-46.3); Red Blood Count 4.13 M/uL (4.70-6.10); White Blood Count 4.25 K/ul (4.8-10.8)
[2025-01-30 08:15] VITALS: RESP 17; TEMP 97.9; O2SAT 94
[2025-01-30 08:17] VITALS: BP 111/62; PULSE 56
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
== END 2025-01-30 12:09 | disposition home health service (06) | DRG 175 ==
LOC: ED 12:59 → 2W 15:42 → SUATTDRO 15:42 → 2W 17:42 → 3N 01-27 22:44